=== PATIENT | female | born 2000 | race Caucasian/White ===

== ENCOUNTER 2018-04-09 09:17 | Emergency (ER) | payer OTHER ==
[2018-04-09 09:22] VITALS: BMI 20.5
[2018-04-09] MEDS ORDERED: SODIUM CHLORIDE 1,000 ML IV ONE ×2 (09:41→11:00)
[2018-04-09] MEDS ORDERED: ONDANSETRON 4 MG/2 ML VIAL IVPB ONE (09:41)
[2018-04-09] MEDS ORDERED: morphine CARPU-JECT 2 MG/1 ML DISP.SYRIN IVPUSH ONE ×2 (09:41→11:54)
[2018-04-09] MEDS ORDERED: MORPHINE SULFATE 2 MG/ML VIAL ONE ×2 (09:42→12:02)
[2018-04-09] MEDS ORDERED: ONDANSETRON 4 MG/2 ML VIAL ONE (09:42)
[2018-04-09 10:02] LABS: BASO % 0.5 % (0-2.0); EOS % 0.5 % (0-4.5); HEMATOCRIT 36.4 % (32.4-45.2); HEMOGLOBIN 12.4 GM/dL (10.7-15.3); LYMPH % 32.4 % (8-40); MCHC 34.2 g/dl (32.0-36.0); MEAN CELL VOLUME 93.7 fl (80-96); MEAN PLT VOLUME 8.5 fl (7.5-11.1); MONO % 5.5 % (3.8-10.2); NEUT % 61.1 % (42.8-82.8); PLATELET COUNT 239 K/MM3 (134-434); RBC 3.88 M/mm3 (3.60-5.2); RDW 12.9 % (11.6-15.6); WHITE BLOOD COUNT 7.2 K/mm3 (4.0-10.0)
[2018-04-09] MEDS ORDERED: KETOROLAC TROMETHAMINE 30 MG/1 ML VIAL IVPUSH ONE (10:06)
--- NOTE | 2018-04-09 10:06 | PDOC ---
History of Present Illness <Siddhartha Gallo - Last Filed: 04/09/18 11:42> - General History Source: Patient Exam Limitations: No Limitations - History of Present Illness Initial Comments: 04/09/18 11:46 The patient is a 17 year old female with a significant PMH of kidney stones three years ago who presents to the ER with left flank pain since this morning. The patient describes the left flank pain as sharp, 10/10 in severity, with radiation to the left lower quadrant. Patient states the left back pain is exacerbated with movement. Patient is complaining of associated nausea and chills. Patient denies taking pain medication today. Patient reports the pain is similar to her right kidney stone three years ago confirmed by CT scan, which passed on its own after medication. Patient returned from [place] on March 28 and was experiencing diarrhea at that time, which resolved after taking imodium. Last menstrual period ended three days ago. The patient denies chest pain, shortness of breath, headache and dizziness. Denies vomiting, current diarrhea and constipation. Denies dysuria, frequency, urgency and hematuria. Allergies: NKA Past surgical history: None reported. Social history: No reported alcohol, drug, or cigarette use. PCP: Hannah Curry <Althea Smart - Last Filed: 04/09/18 11:47> - General Chief Complaint: Pain, Acute Stated Complaint: KIDNEY PAIN Time Seen by Provider: 04/09/18 09:28 Past History - Past Medical History COPD: No Kidney Stones: Yes - Immunization History Immunization Up to Date: Yes - Suicide/Smoking/Psychosocial Hx Smoking History: Never smoked Hx Alcohol Use: No <Siddhartha Gallo - Last Filed: 04/09/18 11:42> <Althea Smart - Last Filed: 04/09/18 11:47> - Past Medical History Allergies/Adverse Reactions: Allergies Allergy/AdvReac Type Severity Reaction Status Date / Time lidocaine Allergy Intermediate Rash Verified 06/29/14 01:04 Home Medications: Ambulatory Orders NK [No Known Home Medication] 04/09/18 Review of Systems - Review of Systems Able to Perform ROS?: Yes Comments:: 04/09/18 11:46 CONSTITUTIONAL: No reported: Fever, Chills, Diaphoresis, Generalized Weakness, Malaise, Loss of Appetite HEENT: No reported: Rhinorrhea, Nasal Congestion, Throat Pain, Throat Swelling, Difficulty Swallowing, Mouth Swelling, Ear Pain, Eye Pain, Visual Changes CARDIOVASCULAR: No reported: Chest Pain, Syncope, Palpitations, Irregular Heart Rate, Lightheadedness, Peripheral Edema RESPIRATORY: No reported: Cough, Shortness of Breath, SOB with Exertion, Orthopnea, Wheezing , Stridor, Hemoptysis GASTROINTESTINAL: No reported: Abdominal Distension, Vomiting, Diarrhea, Constipation, Melena, Hematochezia Reported: Left lower quadrant pain. Reported: Nausea GENITOURINARY: No reported: Dysuria, Frequency, Urgency, Hesitancy, Genital Pain Reported: Left flank pain. MUSCULOSKELETAL: No reported: Myalgia, Arthralgia, Joint Swelling, Neck Pain SKIN: No reported: Rash, Itching, Pallor HEMEATOLOGIC/IMMUNOLOGIC: No reported: Easy Bleeding, Easy Bruising, Lymphadenopathy, Frequent infections ENDOCRINE: No reported: Unexplained Weight Gain, Unexplained Weight Loss, Heat Intolerance , Cold Intolerance NEUROLOGIC: No reported: Headache, Focal Weakness, Paresthesias, Vertigo, Lightheadedness, Unsteady Gait, Seizure, Mental Status Changes, Incontinence PSYCHIATRIC: No reported: Anxiety, Depression <Althea Smart - Last Filed: 04/09/18 11:47> *Physical Exam - Vital Signs Last Vital Signs Temp Pulse Resp BP Pulse Ox 98 F 71 18 139/71 99 04/09/18 09:20 04/09/18 09:20 04/09/18 09:20 04/09/18 09:20 04/09/18 09:20 <Siddhartha Gallo - Last Filed: 04/09/18 11:42> - Vital Signs Last Vital Signs Temp Pulse Resp BP Pulse Ox 98 F 71 18 139/71 99 04/09/18 09:20 04/09/18 09:20 04/09/18 09:20 04/09/18 09:20 04/09/18 09:20 - Physical Exam Comments: 04/09/18 11:47 GENERAL: (+) Moaning in pain. The patient is awake, alert, and fully oriented. HEAD: Normocephalic, atraumatic. EYES: extraocular movements intact, sclera anicteric, conjunctiva clear. ENT: Normal voice, Moist mucous membranes. NECK: Normal range of motion, supple LUNGS: Breath sounds equal, clear to auscultation bilaterally. No wheezes, no rhonchi, no rales. HEART: Regular rate and rhythm, without murmur, rub or gallop. ABDOMEN: (+) Mild left lower quadrant tenderness. Soft. No guarding, no rebound.No CVA tenderness EXTREMITIES: Normal range of motion, no edema. No cyanosis. No erythema, or tenderness. NEUROLOGICAL: No facial assymetry, Normal speech, PSYCH: Normal mood, normal affect. SKIN: Warm, Dry, normal turgor, <Althea Smart - Last Filed: 04/09/18 11:47> ED Treatment Course - LABORATORY CBC & Chemistry Diagram: 04/09/18 09:40 04/09/18 09:40 - ADDITIONAL ORDERS Additional order review: 04/09/18 09:40 RBC 3.88 MCV 93.7 MCHC 34.2 RDW 12.9 MPV 8.5 Neutrophils % 61.1 Lymphocytes % 32.4 Monocytes % 5.5 Eosinophils % 0.5 Basophils % 0.5 - Medications Given in the ED: ED Medications Discontinued Medications Generic Name Dose Route Start Last Admin Trade Name Nate PRN Reason Stop Dose Admin Morphine Sulfate 2 mg 04/09/18 09:41 04/09/18 09:45 Morphine Injection - IVPUSH 04/09/18 09:42 2 mg ONCE ONE Administration Ondansetron HCl 4 mg 04/09/18 09:41 04/09/18 09:45 Zofran Injection IVPB 04/09/18 09:42 4 mg ONCE ONE Administration <Siddhartha Gallo - Last Filed: 04/09/18 11:42> - LABORATORY CBC & Chemistry Diagram: 04/09/18 09:40 04/09/18 09:40 - ADDITIONAL ORDERS Additional order review: Laboratory Results 04/09/18 04/09/18 09:40 09:40 Sodium 142 Potassium 3.4 L Chloride 108 H Carbon Dioxide 23 Anion Gap 11 BUN 15 Creatinine 0.8 Creat Clearance w eGFR > 60 Random Glucose 124 H Calcium 9.2 Total Bilirubin 0.4 AST 18 ALT 20 Alkaline Phosphatase 66 Total Protein 7.5 Albumin 4.3 Urine Color Yellow Urine Appearance Slcloudy Urine pH 5.0 Ur Specific [place] 1.021 Urine Protein 1+ H Urine Glucose (UA) Negative Urine Ketones Negative Urine Blood 3+ H Urine Nitrite Negative Urine Bilirubin Negative Urine Urobilinogen Negative Ur Leukocyte Esterase Negative Urine WBC (Auto) 8 Urine RBC (Auto) 25 Ur Epithelial Cells Rare Urine Bacteria Few Urine Mucus Few Urine HCG, Qual Negative 04/09/18 09:40 RBC 3.88 MCV 93.7 MCHC 34.2 RDW 12.9 MPV 8.5 Neutrophils % 61.1 Lymphocytes % 32.4 Monocytes % 5.5 Eosinophils % 0.5 Basophils % 0.5 - Medications Given in the ED: ED Medications Discontinued Medications Generic Name Dose Route Start Last Admin Trade Name Nate PRN Reason Stop Dose Admin Sodium Chloride 1,000 mls @ 1,000 mls/hr 04/09/18 09:41 04/09/18 09:45 Normal Saline - IV 04/09/18 10:40 1,000 mls/hr .Q1H ONE Administration Ketorolac Tromethamine 30 mg 04/09/18 10:06 04/09/18 10:22 Toradol Injection - IVPUSH 04/09/18 10:07 30 mg ONCE ONE Administration Morphine Sulfate 2 mg 04/09/18 09:41 04/09/18 09:45 Morphine Injection - IVPUSH 04/09/18 09:42 2 mg ONCE ONE Administration Ondansetron HCl 4 mg 04/09/18 09:41 04/09/18 09:45 Zofran Injection IVPB 04/09/18 09:42 4 mg ONCE ONE Administration <Althea Smart - Last Filed: 04/09/18 11:47> Medical Decision Making - Medical Decision Making 04/09/18 10:05 17y F hx of kidney stnoes presents iwth L flank pain that is sharp, constant, started suddenly around 8:30 this morning. Pain similar to prior kidney stones a few years ago but much worse. assoc with fever w/o no fever or systemic complaints. on exam pt appears uncomfortable suspect kidney stones, will r/o , uuti will obtain labs, ua, hcg zofran, toradol/fluids for symptomatic relief A portion of this note was documented by scribe services under my direction. I have reviewed the details of the note, within reason, and agree with the documentation with the following case summary and management plan written by me 04/09/18 11:42 Pt feeling improved Mild dilatation of left renal pelvis suggestive of minimal hydro, +hematuria -- suspect kidney stone will give pt flomax, analgesia and urolology follow up I discussed the physical exam findings, ancillary test results and final diagnoses with the patient. I answered all of the patient's questions. The patient was satisfied with the care received and felt comfortable with the discharge plan and treatment plan. The patient will call their primary care physician within 24 hours to arrange follow-up and will return to the Emergency Department with any new, persistent or worsening symptoms. <Siddhartha Gallo - Last Filed: 04/09/18 11:42> - Medical Decision Making 04/09/18 11:35 Imaging: Kidney US Impression: Likely tiny nonobstructing left renal stones. Mild dilation of the left renal pelvis that may represent minimal hydronephrosis versus an extrarenal pelvis. Normal appearing right kidney Reported by: Dr. Ramos <Althea Smart - Last Filed: 04/09/18 11:47> *DC/Admit/Observation/Transfer - Discharge Dispostion Decision to Admit order: No <Siddhartha Gallo - Last Filed: 04/09/18 11:42> - Attestations Scribe Attestion: 04/09/18 11:37 Documentation prepared by Althea Smart, acting as medical translator for Siddhartha Gallo MD. <Althea Smart - Last Filed: 04/09/18 11:47> Diagnosis at time of Disposition: Kidney stone on left side - Discharge Dispostion Disposition: HOME - Referrals Referrals: Urmila Rock [Primary Care Provider] - Emeka Oreilly MD [Staff Physician] - - Patient Instructions Printed Discharge Instructions: DI for Kidney Stones Additional Instructions: Return to the emergency department immediately with ANY new, persistent or worsening symptoms including worsening pain, inability to tolerate oral intake, fever/chills, or any other concerns. Take the ibuprofen every 6 hours for the next 2 days. Take percocet if you have pain that is not treated with the motrin/ibuprofen. Beware that it may make you sleepy, so do not drive or do anything that would put you or others in danger. Take flomax daily. Stay well hydrated. You MUST call and follow up with your doctor and urology within 3 days for further evaluation of your symptoms. Your emergency department visit is not complete without a followup with your doctor for reevaluation. Results were discussed with you. Please make sure your doctor reviews the results of your emergency evaluation. Print Language: INDIAN
[2018-04-09 10:11] LABS: URINE APPEARANCE SLCLOUDY; URINE BILIRUBIN NEGATIVE (<2.0 mg/dL); URINE COLOR YELLOW; URINE GLUCOSE (UA) NEGATIVE (NEGATIVE); URINE KETONE NEGATIVE (NEGATIVE); URINE LEUK ESTERASE NEGATIVE (NEGATIVE); URINE NITRITE NEGATIVE (NEGATIVE); URINE UROBILINOGEN NEGATIVE mg/dL (0.2-1.0)
[2018-04-09] MEDS ORDERED: KETOROLAC TROMETHAMINE 30 MG/1 ML VIAL ONE (10:11)
[2018-04-09 10:15] LABS: HCG,QUALITATIVE URINE NEGATIVE
[2018-04-09 10:19] LABS: URINE PROTEIN 1+ (NEGATIVE)
[2018-04-09 10:29] LABS: EPI CELLS RARE /HPF (FEW); URINE BACTERIA FEW /hpf (NONE SEEN); URINE MUCUS FEW
[2018-04-09 10:43] LABS: ALBUMIN 4.3 g/dl (3.4-5.0); ANION GAP 11 (8-16); BLOOD UREA NITROGEN 15 mg/dL (7-18); CALCIUM 9.2 mg/dL (8.5-10.1); CHLORIDE 108 mmol/L (98-107); CO2 23 mmol/L (21-32); GLUCOSE,RANDOM 124 mg/dL (74-106); POTASSIUM 3.4 mmol/L (3.5-5.1); SGPT/ALT 20 U/L (12-78); SODIUM 142 mmol/L (136-145)
[2018-04-09 10:46] LABS: ALK PHOS 66 U/L (45-117); BILIRUBIN,TOTAL 0.4 mg/dL (0.2-1.0); CREATININE 0.8 mg/dL (0.55-1.02); SGOT/AST 18 U/L (15-37); TOT PROT 7.5 g/dl (6.4-8.2)
[2018-04-09] MEDS ORDERED: METOCLOPRAMIDE HCL INJECTION 10 MG/2 ML VIAL IVPUSH ONE (11:54)
[2018-04-09] MEDS ORDERED: METOCLOPRAMIDE HCL INJECTION 10 MG/2 ML VIAL ONE (12:02)
[2018-04-09 13:04] VITALS: BP 112/64; PULSE 66; TEMP 97.7
== END 2018-04-09 13:19 | disposition home or self-care (01) ==
LOC: JER 09:17
PROC: 3E033NZ Introduction of Analgesics, Hypnotics, Sedatives into Peripheral Vein, Percutaneous Approach (ICD-10-PCS; principal; 2018-04-09)
PROC: 3E033GC Introduction of Other Therapeutic Substance into Peripheral Vein, Percutaneous Approach (ICD-10-PCS; 2018-04-09)
PROC: 3E0333Z Introduction of Anti-inflammatory into Peripheral Vein, Percutaneous Approach (ICD-10-PCS; 2018-04-09)
PROC: 3E0337Z Introduction of Electrolytic and Water Balance Substance into Peripheral Vein, Percutaneous Approach (ICD-10-PCS; 2018-04-09)
DX: N20.0 Calculus of kidney (principal)
CPT/HCPCS: 36415; 76775-TC; 80053; 81003; 81015; 84703; 85025; 99284-25; J7030

== ENCOUNTER 2018-05-16 12:53 | Day surgery (SDC) | payer OTHER ==
[2018-05-16 13:43] VITALS: TEMP 98.2
[2018-05-16] MEDS ORDERED: fentaNYL CITRATE 250 MCG/5 ML VIAL ONE (15:10)
[2018-05-16] MEDS ORDERED: MIDAZOLAM HCL 2 MG/2 ML SINGLE DOSE VIAL ONE (15:10)
--- NOTE | 2018-05-16 16:13 | OP ---
Operative Note - Note: Operative Date: 05/16/18 Pre-Operative Diagnosis: R renal stone Operation: Right ESWL Findings: 3 mm upper pole and 3 mm lower pole stones Right kidney Surgeon: Emeka Oreilly Anesthesia: Fractional Estimated Blood Loss (mls): 0
[2018-05-16 17:50] VITALS: BP 102/56; PULSE 66
--- NOTE | 2018-05-16 22:03 | OP ---
DATE OF OPERATION: 05/16/2018 PREOPERATIVE DIAGNOSIS: Right renal stone. POSTOPERATIVE DIAGNOSIS: Right renal stone. PROCEDURE: Right extracorporeal shock wave lithotripsy. ATTENDING: Lori Villegas MD ANESTHESIA: General. DESCRIPTION OF OPERATION: The patient was brought in the operating room and placed in supine position on the operating room table. Ultrasonography and fluoroscopy were performed. Two stones were identified, a 3-mm upper pole and a 3-mm lower pole stone. Anesthesia was then administered as was preoperative antibiotics. Shock wave lithotripsy was then performed; 1250 impulses at 17 joules of power were administered to each stone separately. Excellent fragmentation was noted. The patient tolerated the procedure very well. There were no complications noted. The disposition of the patient was to the recovery room. LORI VILLEGAS M.D. [id number]
== END 2018-05-16 17:30 | disposition home or self-care (01) ==
LOC: JASU-SURG 12:53
PROVIDERS: ATTEND Urology
PROC: 0TF3XZZ Fragmentation in Right Kidney Pelvis, External Approach (ICD-10-PCS; principal; 2018-05-16 14:00)
DX: N20.0 Calculus of kidney (principal)
CPT/HCPCS: 84703

== ENCOUNTER 2018-05-30 10:04 | Day surgery (SDC) | payer OTHER ==
[2018-05-30] MEDS ORDERED: MIDAZOLAM HCL 2 MG/2 ML SINGLE DOSE VIAL ONE ×2 (10:56→11:56)
[2018-05-30] MEDS ORDERED: PROPOFOL 20 ML ONE (10:56)
--- NOTE | 2018-05-30 12:16 | OP ---
Operative Note - Note: Operative Date: 05/30/18 Pre-Operative Diagnosis: Left renal stone Operation: Left ESWL Findings: Upper, Mid and lower pole x 3 5 mm renal stones Post-Operative Diagnosis: Same as Pre-op Surgeon: Emeka Oreilly Anesthesia: Fractional Estimated Blood Loss (mls): 0 Operative Report Dictated: Yes
[2018-05-30 14:10] VITALS: BP 111/53; PULSE 62; TEMP 97.5
[2018-05-30] MEDS ORDERED: oxyCODONE HCL 5 MG TABLET PO PRN (15:53)
[2018-05-30] MEDS ORDERED: ACETAMINOPHEN 325 MG TABLET (FP) PO PRN (15:53)
[2018-05-30] MEDS ORDERED: ONDANSETRON 4 MG/2 ML VIAL IVPUSH PRN (15:53)
[2018-05-30] MEDS ORDERED: LACTATED RINGERS SOLUTION 1,000 ML IV SCH (16:00)
--- NOTE | 2018-05-30 20:33 | OP ---
DATE OF OPERATION: 05/30/2018 PREOPERATIVE DIAGNOSIS: Left renal stone. POSTOPERATIVE DIAGNOSIS: Left renal stone. PROCEDURE: Left extracorporeal shockwave lithotripsy. ATTENDING SURGEON: Lori Villegas MD ANESTHESIA: Fractional. DESCRIPTION OF PROCEDURE: The patient was brought to the operating room and placed in the supine position on the operating room table. Ultrasonography and fluoroscopy were performed. Three stones, each measuring 5 mm, were noted in the upper, middle, and lower poles. Shockwave lithotripsy was performed once anesthesia and preoperative antibiotics were administered. Then, 1000 impulses at 17-18 Joules of power were administered to each stone. A total of 3000 impulses were given. No complications were noted. Excellent fragmentation was noted under real-time ultrasonography and fluoroscopy. DISPOSITION: The patient was to the recovery room. LORI VILLEGAS M.D. [id number]
== END 2018-05-30 14:35 | disposition home or self-care (01) ==
LOC: JASU-SURG 10:04
PROVIDERS: ATTEND Urology
PROC: 0TF4XZZ Fragmentation in Left Kidney Pelvis, External Approach (ICD-10-PCS; principal; 2018-05-30 11:00)
DX: N20.0 Calculus of kidney (principal)
CPT/HCPCS: 84703

== ENCOUNTER 2019-02-20 11:15 | Day surgery (SDC) | payer OTHER | END 2019-02-20 15:00 | disposition home or self-care (01) | LOC: JASU-SURG 11:15 ==

== ENCOUNTER 2020-05-03 15:05 | Inpatient (IN) | payer OTHER ==
[2020-05-03] MEDS ORDERED: KETOROLAC TROMETHAMINE 30 MG/1 ML VIAL IVPUSH ONE (15:37)
[2020-05-03] MEDS ORDERED: ONDANSETRON 4 MG/2 ML VIAL IVPUSH ONE (15:37)
[2020-05-03] MEDS ORDERED: morphine CARPU-JECT 2 MG/1 ML DISP.SYRIN IVPUSH ONE (15:37)
--- NOTE | 2020-05-03 16:02 | PDOC ---
History of Present Illness - General History Source: Patient Exam Limitations: No Limitations - History of Present Illness Initial Comments: 05/03/20 15:56 19-year-old female past medical history of nephrolithiasis presenting to the ED complaining of bilateral flank pain for 5 days. Patient states she was seen and evaluated at [facility] and received a CAT scan with negative results and was discharged. Patient states since her evaluation 4 days ago she had worsening flank pain dysuria and fever and chills. Patient has also experienced multiple episodes of nonbloody nonbilious vomiting without diarrhea. Patient is currently on her menstrual period. Of note patient has recent travel to [place]. Pt otherwise denies: fevers, chills, syncope, lightheadedness, dizziness, headaches, neck pain, chest pain, shortness of breath, palpitations, abdominal pain, diarrhea, constipation. <Javy Barba - Last Filed: 05/03/20 19:13> <Toshia Yuan - Last Filed: 05/07/20 10:40> - General Chief Complaint: Pain, Acute Stated Complaint: BACK PAIN/VOMITING Time Seen by Provider: 05/03/20 15:28 Past History - Medical History Anemia: No Asthma: No Cancer: No Cardiac Disorders: No CVA: No COPD: No CHF: No Dementia: No Diabetes: No GI Disorders: No Disorders: Yes (STONES) HTN: No Hypercholesterolemia: No Kidney Stones: Yes Liver Disease: No Seizures: No Thyroid Disease: No - Reproductive History Is Patient Now?: No - Immunization History Immunization Up to Date: Yes - Psycho-Social/Smoking History Smoking History: Never smoked <Javy Barba - Last Filed: 05/03/20 19:13> <Toshia Yuan - Last Filed: 05/07/20 10:40> - Medical History Allergies/Adverse Reactions: Allergies Allergy/AdvReac Type Severity Reaction Status Date / Time No Known Drug Allergies Allergy Verified 05/03/20 15:16 Home Medications: Ambulatory Orders Doxycycline Hyclate 100 mg PO BID 10 Days #20 capsule 05/06/20 Nitrofurantoin Macrocrystal [Nitrofurantoin] 100 mg PO BID 7 Days #14 capsule 05/06/20 *Physical Exam - Vital Signs Last Vital Signs Temp Pulse Resp BP Pulse Ox 100.8 F H 114 H 18 94/55 L 05/03/20 15:09 05/03/20 15:09 05/03/20 15:09 05/03/20 15:09 - Physical Exam 05/03/20 15:58 Gen: AAOx 3, no acute distress, comfortable, no signs of respiratory distress HENT: atraumatic, normocephalic with no laceration or contusion. Nasal mucosa without erythema. Oropharynx without erythema or exudates. Mucous membranes moist. EYES: PERRL, EOM intact, conjunctiva pink NECK: supple; trachea midline; no JVD, no lymphadenopathy, or thyromegaly CV: RRR no murmurs, gallops, or rubs. CHEST: CTA b/l no wheezing, rales or rhonchi ABD: +BS/ND. no TTP; soft, no rebound, no guarding +CVAT R>L EXTREMITY: no cyanosis or erythema. 2+ dorsalis pedis, posterior tibial, and radial pulse. No pedal edema; no calf swelling or tenderness SKIN: no rash, warm and dry, no diaphoresis HEME: no purpura or ecchymosis NEURO: normal speech, CN II-XII intact, sensation intact, normal gait, no cerebellar deficits MS: 5/5 strength in all extremities, FROM intact in all extremities. <Javy Barba - Last Filed: 05/03/20 19:13> - Vital Signs Last Vital Signs Temp Pulse Resp BP Pulse Ox 97.7 F 51 L 16 114/64 99 05/06/20 15:03 05/06/20 15:03 05/06/20 15:03 05/06/20 15:03 05/06/20 15:03 <Toshia Yuan - Last Filed: 05/07/20 10:40> ED Treatment Course - LABORATORY CBC & Chemistry Diagram: 05/03/20 15:50 05/03/20 15:50 - RADIOLOGY Radiology Studies Ordered: Category Date Time Status KIDNEY / RENAL US [US] Stat Ultrasound 05/03/20 15:55 Ordered <Javy Barba - Last Filed: 05/03/20 19:13> - LABORATORY CBC & Chemistry Diagram: 05/06/20 07:18 05/06/20 07:18 - ADDITIONAL ORDERS Additional order review: 05/03/20 15:50 Urine Culture - Final Urine - Urine Clean Catch Escherichia Coli 05/03/20 15:50 RBC 4.41 MCV 93.1 MCHC 34.7 RDW 12.8 MPV 9.6 D Neutrophils % 44.8 D Lymphocytes % 39.9 D Monocytes % 14.5 H D Eosinophils % 0.1 Basophils % 0.7 - Medications Given in the ED: ED Medications Discontinued Medications Generic Name Dose Route Start Last Admin Trade Name Freq PRN Reason Stop Dose Admin Diphenhydramine HCl 25 mg 05/04/20 06:00 05/04/20 05:51 Benadryl Injection - IVPB 05/04/20 06:01 25 mg ONCE ONE Administration Diphenhydramine HCl 25 mg 05/05/20 01:38 05/05/20 01:55 Benadryl Injection - IVPB 05/05/20 01:39 25 mg ONCE ONE Administration Diphenhydramine HCl 25 mg 05/05/20 08:32 05/05/20 10:10 Benadryl Oral Solution - PO 25 mg Q8H PRN Administration FOR ITCHING Hydrocortisone 1 applic 05/06/20 07:14 05/06/20 10:14 Hytone 0.5% Cream - TP 1 applic BID PRN Administration FOR ITCHING Potassium Chloride 10 meq in 100 mls @ 100 mls/hr 05/03/20 18:45 05/03/20 18:50 Potassium Chloride 10 Meq Premix Ivpb - IVPB 05/03/20 19:44 100 mls/hr Q60M AFUA Administration Sodium Chloride 1,000 mls @ 100 mls/hr 05/03/20 21:45 05/03/20 22:04 Normal Saline - IV 05/05/20 07:44 100 mls/hr ASDIR AFUA Administration Doxycycline Hyclate 100 mg/ 100 mls @ 100 mls/hr 05/03/20 22:00 05/04/20 21:38 Dextrose IVPB 100 mls/hr BID AFUA Administration Piperacillin Sod/Tazobactam 100 mls @ 200 mls/hr 05/03/20 22:00 05/04/20 15:01 Sod 4.5 gm/ Dextrose IVPB 05/04/20 15:29 200 mls/hr Q6H-IV AFUA Administration Protocol Vancomycin HCl 1,250 mg/ 250 mls @ 166.667 mls/hr 05/04/20 02:15 05/04/20 17:30 Dextrose IVPB 05/04/20 19:29 166.667 mls/hr Q8H-IV AFUA Administration Potassium Chloride 40 meq/ 1,020 mls @ 125 mls/hr 05/04/20 10:45 05/05/20 02:29 Sodium Chloride IVPB 05/05/20 02:44 125 mls/hr Q8H AFUA Administration Piperacillin Sod/Tazobactam 50 mls @ 100 mls/hr 05/05/20 02:00 05/06/20 09:12 Sod 3.375 gm/ Dextrose IVPB 100 mls/hr Q8H-IV AFUA Administration Protocol Doxycycline Hyclate 100 mg/ 100 mls @ 100 mls/hr 05/05/20 10:00 05/06/20 10:11 Dextrose IVPB 100 mls/hr BID AFUA Administration Sodium Chloride 1,000 mls @ 75 mls/hr 05/05/20 14:00 05/06/20 09:12 1/2 Normal Saline IV 75 mls/hr ASDIR AFUA Administration Ketorolac Tromethamine 30 mg 05/03/20 15:37 05/03/20 16:39 Toradol Injection - IVPUSH 05/03/20 15:38 30 mg ONCE ONE Administration Magnesium Sulfate/Dextrose 1 gm 05/06/20 11:00 05/06/20 11:41 Magnesium 1gm/D5w - IVPB 05/06/20 11:01 1 gm ONCE ONE Administration Morphine Sulfate 2 mg 05/03/20 15:37 05/03/20 16:39 Morphine Injection - IVPUSH 05/03/20 15:38 Not Given ONCE ONE Ondansetron HCl 4 mg 05/03/20 15:37 05/03/20 16:39 Zofran Injection IVPUSH 05/03/20 15:38 4 mg ONCE ONE Administration Potassium Chloride 20 meq 05/03/20 18:33 05/03/20 18:51 Potassium Chloride 20 Meq Premix Ivpb - IVPB 05/03/20 18:34 Not Given ONCE ONE Sodium Chloride 1,000 ml 05/03/20 18:33 05/03/20 18:50 Normal Saline - IV 05/03/20 18:34 1,000 ml ONCE ONE Administration <Toshia Yuan - Last Filed: 05/07/20 10:40> Medical Decision Making - Medical Decision Making 19-year-old female bilateral flank pain Vital signs significant for fever 100.8 and tachycardia to 114 Will obtain labs UA and renal ultrasound (patient had CAT scan 4 days ago will avoid excessive radiation if possible) We will give Toradol and Zofran for symptomatic relief Will reassess based on results White blood cell count 1.8 neutropenia of 0.8 H/H 14.2/41 Platelet count 63 UA negative for UTI Attending Physician recommends CT abdomen and pelvis as well as admission Coagulation factors within normal limits Sodium 133 Potassium 3.3 AST 445 ALT 203 Beta-hCG negative Rest of labs noncontributory Lipase for add-on Replete potassium and give 1 L NS Ultrasound shows no hydronephrosis A 1.3 x 0.7 cm echogenic focus is seen in the region of the left renal pelvis possibly representing a nonobstructing calculus CT shows no acute pathology please refer to report for incidental findings Due to patient blood work which outlines a neutropenic fever with elevated LFTs and thrombocytopenia possibly caused by hepatitis versus other acute pathology with recent travel to [place] patient to be admitted for medical work-up Micro blog sent to admitting physician at 1830 awaiting response 05/03/20 19:13 Pt admitted under the care of Dr Tijerina for further management <Javy Barba - Last Filed: 05/03/20 19:13> - Medical Decision Making I reviewed the case with the mid-level practitioner and agree with the mid-level practitioner's assessment, diagnosis and disposition. <Toshia Yuan - Last Filed: 05/07/20 10:40> Discharge - Discharge Information Problems reviewed: Yes - Admission Yes <Javy Barba - Last Filed: 05/03/20 19:13> <Toshia Yuan - Last Filed: 05/07/20 10:40> - Discharge Information Clinical Impression/Diagnosis: Neutropenia Qualifiers: Neutropenia type: due to infection Qualified Code(s): D70.3 - Neutropenia due to infection Condition: Stable Disposition: HOME
[2020-05-03 16:17] LABS: BASO % 0.7 % (0-2.0); EOS % 0.1 % (0-4.5); HEMOGLOBIN 14.2 GM/dL (10.7-15.3); LYMPH % 39.9 % (8-40); MCH 32.3 pg (25.7-33.7); MCHC 34.7 g/dl (32.0-36.0); MEAN CELL VOLUME 93.1 fl (80-96); MEAN PLT VOLUME 9.6 fl (7.5-11.1); MONO % 14.5 % (3.8-10.2); NEUT % 44.8 % (42.8-82.8); RBC 4.41 M/mm3 (3.60-5.2); RDW 12.8 % (11.6-15.6)
[2020-05-03 16:21] LABS: EPI CELLS 36 /uL (0-25.1); HYALINE CASTS 3 /uL (0-3.1); PH,URINE 7.5 (5.0-8.0); URINE APPEARANCE CLEAR; URINE BACTERIA 67 /uL (0-1359); URINE BILIRUBIN NEGATIVE (NEGATIVE); URINE COLOR DK YELLOW; URINE GLUCOSE (UA) NEGATIVE (NEGATIVE); URINE KETONE 1+ (NEGATIVE); URINE LEUK ESTERASE TRACE (NEGATIVE); URINE NITRITE NEGATIVE (NEGATIVE); URINE PROTEIN 1+ (NEGATIVE); URINE RBC 20 /uL (0-23.9); URINE WBC 23 /uL (0-25.8)
[2020-05-03 16:22] LABS: PLATELET COUNT 63 K/MM3 (134-434); WHITE BLOOD COUNT 1.8 K/mm3 (4.0-10.0)
[2020-05-03 16:27] LABS: INR 1.06 (0.83-1.09); PROTHROMBIN TIME (PATIENT) 12.5 SEC (9.7-13.0)
[2020-05-03] MEDS ORDERED: KETOROLAC TROMETHAMINE 30 MG/1 ML VIAL ONE (16:34)
[2020-05-03 16:44] LABS: OVALOCYTE 1+
[2020-05-03 16:45] LABS: PLATELET ESTIMATE DECREASED
[2020-05-03 16:48] LABS: ALBUMIN 3.9 g/dl (3.4-5.0); ALK PHOS 52 U/L (45-117); ANION GAP 9 MMOL/L (8-16); BILIRUBIN,TOTAL 0.4 mg/dL (0.2-1); CALCIUM 8.2 mg/dL (8.5-10.1); CHLORIDE 100 mmol/L (98-107); CO2 24 mmol/L (21-32); CREATININE 0.8 mg/dL (0.55-1.3); GLUCOSE,RANDOM 107 mg/dL (74-106); POTASSIUM 3.3 mmol/L (3.5-5.1); SGOT/AST 445 U/L (15-37); SGPT/ALT 203 U/L (13-61); SODIUM 133 mmol/L (136-145); TOT PROT 7.6 g/dl (6.4-8.2)
[2020-05-03] MEDS ORDERED: POTASSIUM CHLORIDE 20 MEQ PREMIX IVPB 100 ML IVPB ONE (18:33)
[2020-05-03] MEDS ORDERED: SODIUM CHLORIDE 0.9% 500 ML INFUS.BAG IV ONE (18:33)
[2020-05-03] MEDS ORDERED: KCL 10 MEQ IVPB 10 MEQ/100 ML INFUS.BAG IVPB SCH (18:45)
[2020-05-03] MEDS ORDERED: KCL 10 MEQ IVPB 10 MEQ/100 ML INFUS.BAG IVPB ONE (18:45)
[2020-05-03 18:51] LABS: LIPASE 199 U/L (73-393)
--- NOTE | 2020-05-03 19:56 | PN ---
Teaching Attending Note Name of Resident: Mayte Rodriguez ATTENDING PHYSICIAN STATEMENT I saw and evaluated the patient. I reviewed the resident's note and discussed the case with the resident. I agree with the resident's findings and plan as documented. SUBJECTIVE: Patient is a 19 year old old woman with a PMH of Kidney stones and Left kidney lithotripsy presenting to the ER complaining of bilateral flank pain for 5 days. Patient states she was evaluated at [facility] four days ago and the CAT scan was negative. Since then she has had worsening flank pain dysuria and fever and chills. Patient has also experienced multiple episodes of nonbloody nonbilious vomiting without diarrhea. Patient is currently on her menstrual period. Patient recently travelled to [place] and had diarrhea and abdominal pain for 5 days while in [place]. Also had mosquito bites on her legs. Patient denies chest pain, shortness of breath, headache, palpitations, dizziness, diarrhea, constipation, melena, hematochezia or hematuria. Denies alcohol, tobacco or illicit drug use. No sick contacts. Family history is unremarkable. OBJECTIVE: Alert Vital Signs Period Temp Pulse Resp BP Sys/Priest Pulse Ox Last 24 Hr 99.1 F-100.8 F 71-114 18-20 90-94/49-55 98-100 HEENT: No Jaundice, eye redness or discharge, PERRLA, EOMI. Normocephalic, atraumatic. External ears are normal and hearing is grossly intact. No nasal discharge. Neck: Supple, nontender. No palpable adenopathy or thyromegaly. No JVD Chest: Good effort. Clear to auscultation and percussion. Heart: Regular. No S3, rub or murmur Abdomen: Not distended, soft, flank tenderness and no HSM. No rebound or guarding. Normal bowel sounds. Ext: Peripheral pulses intact. No leg edema. Sequelae of insect bites. Skin: Warm and dry. No petechiae, rash or ecchymosis. Neuro: Alert. Oriented x3. CN 2-12 grossly intact. Sensation grossly intact in all four extremities and DTR are symmetric. Psych: Appropriate mood and affect. Good insight. Home Medications Medication Instructions Recorded NK [No Known Home Medication] 02/17/19 Abnormal Lab Results 05/03/20 05/03/20 05/03/20 15:50 15:50 15:50 WBC 1.8 L* Plt Count 63 L D Absolute Neuts (auto) 0.8 L Neutrophils % (Manual) 34.0 L Lymphocytes % (Manual) 42.0 H Monocytes % 14.5 H D Sodium 133 L Potassium 3.3 L BUN 6.0 L Random Glucose 107 H Calcium 8.2 L AST 445 H ALT 203 H Urine Protein 1+ H Urine Ketones 1+ H Current Medications Generic Name Dose Route Start Last Admin Trade Name Freq PRN Reason Stop Dose Admin Sodium Chloride 1,000 mls @ 100 mls/hr 05/03/20 21:45 05/03/20 22:04 Normal Saline - IV 100 mls/hr ASDIR AFUA Administration Piperacillin Sod/Tazobactam 100 mls @ 200 mls/hr 05/03/20 22:00 Sod 4.5 gm/ Dextrose IVPB Q6H-IV AFUA Protocol Doxycycline Hyclate 100 mg/ 100 mls @ 100 mls/hr 05/03/20 22:00 05/04/20 00:30 Dextrose IVPB 100 mls/hr BID AFUA Administration Piperacillin Sod/Tazobactam 100 mls @ 200 mls/hr 05/03/20 22:00 05/03/20 23:18 Sod 4.5 gm/ Dextrose IVPB 05/04/20 15:29 200 mls/hr Q6H-IV AFUA Administration Protocol Vancomycin HCl 1,250 mg/ 250 mls @ 166.667 mls/hr 05/04/20 02:15 05/04/20 02:36 Dextrose IVPB 05/04/20 19:29 166.667 mls/hr Q8H-IV AFUA Administration Metoclopramide HCl 5 mg 05/03/20 21:34 Reglan Injection - IVPUSH Q6H PRN NAUSEA AND/OR VOMITING Vancomycin HCl 1,000 mg 05/03/20 22:00 Vancomycin (Pre-Docked) IVPB DAILY AFUA Protocol ASSESSMENT AND PLAN: 1. Neutropenic fever/Kidney stone disease - Ultrasound showed a nonobstructing kidney stone in the left renal pelvis. CT abdomen/pelvis with IV contrast didnot reveal any acute abnormality. No acute abnormality on CXR. Sepsis workup being done. Transaminitis and low platelets may be components of sepsis - will trend. Hepatitis serology pending. Concern is for Tick-borne illness, hepatitis A or parasitic infection like amoebiasis. Hypokalemia and hyponatremia likely partly due to hyperglycemia and/or vomiting. Will check serum magnesium, give IV and PO KCL, limit free water intake and correct hyperglycemia. Will send tick borne panel, send stool for ova&parasites if diarrhea reoccurs, hepatitis A serology, trend LFTs, RUQ sonogram, HIV test and place on reverse isolation. Will treat IV Vancomycin, IV Zosyn, IV Doxycycline, IV Morphine (PRN), IV NS and consult ID/Hematology/GI. Consult Urology and refer to Nephrology for stone disease risk factor evaluation. Viral testing for COVID-19 ordered and patient placed on airborne, droplet and contact isolation. 2. DVT prophylaxis - Lovenox 40 mg SQ q 24 hours. 3. Advance directives - Full code
[2020-05-03] MEDS ORDERED: METOCLOPRAMIDE HCL INJECTION 10 MG/2 ML VIAL IVPUSH PRN (21:34)
[2020-05-03] MEDS ORDERED: SODIUM CHLORIDE 1,000 ML IV SCH (21:45)
[2020-05-03 21:51] LABS: HEMATOCRIT 36.4 % (32.4-45.2); HEMOGLOBIN 12.6 GM/dL (10.7-15.3); MCH 32.4 pg (25.7-33.7); MCHC 34.7 g/dl (32.0-36.0); MEAN CELL VOLUME 93.5 fl (80-96); MEAN PLT VOLUME 9.1 fl (7.5-11.1)
[2020-05-03 21:56] LABS: PLATELET COUNT 48 K/MM3 (134-434); WHITE BLOOD COUNT 1.3 K/mm3 (4.0-10.0)
[2020-05-03] MEDS ORDERED: PIPERACILLIN/TAZOB 4.5 GM 4.5 GM in DEXTROSE 5%-WATER 100 ML IVPB SCH (22:00)
[2020-05-03] MEDS ORDERED: VANCOMYCIN 1 GM in D5W (PRE-DOCKED) 1,000 MG/250 ML IVPB SCH (22:00)
[2020-05-03] MEDS ORDERED: DEXTROSE 5%-WATER 100 ML IVPB ONE (23:10)
[2020-05-03] MEDS ORDERED: PIPERACILLIN/TAZOBACTAM 4.5 GM VIAL IVPB ONE (23:10)
[2020-05-03] MEDS: PIPERACILLIN/TAZOB 4.5 GM 4.5 GM in DEXTROSE 5%-WATER 100 ML IVPB SCH (23:18)
[2020-05-04] MEDS ORDERED: DOXYCYCLINE HYCLATE 100 MG VIAL ONE ×3 (00:23→21:20)
[2020-05-04] MEDS ORDERED: DEXTROSE 5%-WATER 100 ML IVPB ONE ×6 (00:23→21:20)
[2020-05-04] MEDS: DOXYCYCLINE INJECTION 100 MG in DEXTROSE 5%-WATER 100 ML IVPB SCH ×3 (00:30→21:38)
[2020-05-04] MEDS ORDERED: VANCOMYCIN 1 GM in D5W (PRE-DOCKED) 1,000 MG/250 ML IVPB SCH (02:15)
[2020-05-04] MEDS: VANCOMYCIN HCL 1,250 MG in DEXTROSE 5%-WATER - 250 ML IVPB SCH ×3 (02:36→17:30)
--- NOTE | 2020-05-04 03:21 | HP ---
CHIEF COMPLAINT: b/l flank pain, fever, chills for last 5 days PCP: unknown HISTORY OF PRESENT ILLNESS: Lisa Phillips is a 19 year old female with a PMX of nephrolithiasis who is presenting with b/l flank pain, fevers, and chills for the last 5 days. Patient states that she has had fever, chills, and b/l flank pain on and off for the last 5 days. States that Tylenol BID and chamomile tea makes her feel better. Patient endorses headaches, nausea, vomiting 4-5x/day, fatigue, on and off diarrhea. Of note, patient traveled to [place] from April 13- and she states that during her trip she had 5 days of diarrhea with abdominal pain and flank pain. Patient also endorses being bitten by a lot of mosquitoes during her trip. Patient has a surgical history of lithotripsy for her kidney stones and does not currently take any medications or has any known allergies. Patient denies any prior hospitalizations and denies any pertinent family history. Currently not taking any medications. Patient states that her FDLMP was 4 days ago and she is currently on her period. Denies sexual activity but patient does have a boyfriend who was present at the time of interview. ER course was notable for: (1) Potassium was repleted; 10 meq given (2) Toradol and morphine given (3) EKG done: normal sinus rhythm with prolonged QTc of 503 Recent Travel: [place] April 13 PAST MEDICAL HISTORY: nephrolithiasis PAST SURGICAL HISTORY: lithotripsy Social History: Smoking:denies Alcohol:occasional Drugs:denies Allergies No Known Drug Allergies Allergy (Verified 05/03/20 15:16) HOME MEDICATIONS: Home Medications Medication Instructions Recorded NK [No Known Home Medication] 02/17/19 REVIEW OF SYSTEMS CONSTITUTIONAL: +fever, +chills, +generalized weakness, + malaise Absent: loss of appetite, weight change HEENT: Absent: rhinorrhea, nasal congestion, throat pain, throat swelling, difficulty swallowing, mouth swelling, ear pain, eye pain, visual changes CARDIOVASCULAR: +lightheadedness Absent: chest pain, syncope, palpitations, irregular heart rate, peripheral edema RESPIRATORY: Absent: cough, shortness of breath, dyspnea with exertion, orthopnea, wheezing, stridor, hemoptysis GASTROINTESTINAL: +nausea, +vomiting, +diarrhea Absent: abdominal pain, abdominal distension, constipation, melena, hematochezia GENITOURINARY: Absent: dysuria, frequency, urgency, hesitancy, hematuria, flank pain, genital pain MUSCULOSKELETAL: +myalgia, +arthralgia, Absent: joint swelling, back pain, neck pain SKIN: Absent: rash, itching, pallor HEMATOLOGIC/IMMUNOLOGIC: Absent: easy bleeding, easy bruising, lymphadenopathy, frequent infections ENDOCRINE: Absent: unexplained weight gain, unexplained weight loss, heat intolerance, cold intolerance NEUROLOGIC: + headaches Absent: focal weakness or paresthesias, dizziness, unsteady gait, seizure, mental status changes, bladder or bowel incontinence PSYCHIATRIC: Absent: anxiety, depression, suicidal or homicidal ideation, hallucinations. PHYSICAL EXAMINATION Vital Signs - 24 hr 05/03/20 05/03/20 05/03/20 15:09 18:52 19:39 Temperature 100.8 F H 99.1 F Pulse Rate 114 H Pulse Rate [ 71 Radial] Respiratory 18 20 Rate Blood Pressure 94/55 L Blood Pressure 90/49 L [Left Arm] O2 Sat by Pulse 100 98 Oximetry (%) 05/03/20 05/04/20 21:00 01:17 Temperature 98.3 F 98.5 F Pulse Rate 57 L 58 L Pulse Rate [ Radial] Respiratory 18 18 Rate Blood Pressure 91/52 L 96/62 Blood Pressure [Left Arm] O2 Sat by Pulse 98 100 Oximetry (%) GENERAL: AAOx3, in no acute distress HEENT: NCAT, PERRLA, EOMI, sclera anicteric, conjunctiva clear, oropharynx clear w/o exudates. MMM. NECK: Normal ROM, supple, no lymphadenopathy, JVD, or masses LUNGS: CTABL no wheezes/ rhonchi/ rales. No distress, speaks in full sentences. No increased work of breathing. HEART: RRR, normal S1 S2, no M/R/G, peripheral pulses 2+ and equal b/l ABDOMEN: Soft, tenderness to deep palpation in RUQ, + BS. No guarding or rebound. + hepatomegaly. no splenomegaly. b/l flank tenderness R > L. + Willy's sign b/l MSK: ROM WNL EXTREMITIES: Normal inspection. No peripheral edema. No clubbing or cyanosis. NEUROLOGICAL: CN II-XII intact. Normal speech, normal gait, no focal sensorimotor deficits. SKIN: Warm, Dry, normal turgor, mosquito bites b/l legs Laboratory Results - last 24 hr CBC, BMP 05/04/20 07:36 05/04/20 07:36 05/03/20 05/03/20 05/03/20 15:50 15:50 15:50 WBC 1.8 L* RBC 4.41 Hgb 14.2 Hct 41.0 MCV 93.1 MCH 32.3 MCHC 34.7 RDW 12.8 Plt Count 63 L D MPV 9.6 D Absolute Neuts (auto) 0.8 L Total Counted 100 Neutrophils % 44.8 D Neutrophils % (Manual) 34.0 L Band Neutrophils % 4.0 Lymphocytes % 39.9 D Lymphocytes % (Manual) 42.0 H Monocytes % 14.5 H D Monocytes % (Manual) 10 Eosinophils % 0.1 Basophils % 0.7 Myelocytes % (Man) 2 Nucleated RBC % 0 Metamyelocytes 2 Platelet Estimate Decreased Platelet Comment No clumping noted Ovalocytes 1+ PT with INR 12.50 INR 1.06 Sodium Potassium Chloride Carbon Dioxide Anion Gap BUN Creatinine Est GFR (CKD-EPI)AfAm Est GFR (CKD-EPI)NonAf Random Glucose Lactic Acid Calcium Total Bilirubin AST ALT Alkaline Phosphatase Total Protein Albumin Lipase Beta HCG, Quant Urine Color Dk yellow Urine Appearance Clear Urine pH 7.5 D Ur Specific [place] 1.016 Urine Protein 1+ H Urine Glucose (UA) Negative Urine Ketones 1+ H Urine Blood Negative Urine Nitrite Negative Urine Bilirubin Negative Urine Urobilinogen 1.0 Ur Leukocyte Esterase Trace Urine WBC (Auto) 23 Urine RBC (Auto) 20 Urine Casts (Auto) 3 U Epithel Cells (Auto) 36 Urine Bacteria (Auto) 67 05/03/20 05/03/20 05/03/20 15:50 15:50 21:23 WBC 1.3 L* RBC 3.90 Hgb 12.6 Hct 36.4 MCV 93.5 MCH 32.4 MCHC 34.7 RDW 13.0 Plt Count 48 L D MPV 9.1 Absolute Neuts (auto) Total Counted Neutrophils % Neutrophils % (Manual) Band Neutrophils % Lymphocytes % Lymphocytes % (Manual) Monocytes % Monocytes % (Manual) Eosinophils % Basophils % Myelocytes % (Man) Nucleated RBC % Metamyelocytes Platelet Estimate Platelet Comment Ovalocytes PT with INR INR Sodium 133 L Potassium 3.3 L Chloride 100 Carbon Dioxide 24 Anion Gap 9 BUN 6.0 L Creatinine 0.8 Est GFR (CKD-EPI)AfAm 122.14 Est GFR (CKD-EPI)NonAf 105.39 Random Glucose 107 H Lactic Acid 1.6 Calcium 8.2 L Total Bilirubin 0.4 AST 445 H ALT 203 H Alkaline Phosphatase 52 Total Protein 7.6 Albumin 3.9 Lipase 199 Beta HCG, Quant < 1.0 Urine Color Urine Appearance Urine pH Ur Specific [place] Urine Protein Urine Glucose (UA) Urine Ketones Urine Blood Urine Nitrite Urine Bilirubin Urine Urobilinogen Ur Leukocyte Esterase Urine WBC (Auto) Urine RBC (Auto) Urine Casts (Auto) U Epithel Cells (Auto) Urine Bacteria (Auto) ASSESSMENT/PLAN: 19 year old female with PMX nephrolithiasis presenting with b/l flank pain, fevers, and chills for the past 5 days. Admitted for neutropenic fever. #Neutropenic Fever -HIV, LISSETT, Lyme and STD panel ordered -blood cultures ordered -stool O and P ordered -Abx: Doxycycline, Vancomycin, and Zosyn -EKG at admission showed QTc of 503 -avoid QTc prolonging agents -IV Reglan PRN for n/v -liver u/s ordered -CXR ordered -reverse isolation precautions -IV morphine PRN for pain -ID consult appreciated -GI consult appreciated -Heme consult appreciated #L Renal Stone -renal U/S: 1.3 x 0.7 cm echogenic focus in L renal pelvis. nonobstructing calculus possible -CT abdomen/pelvis w/ contrast: no acute abnormalities -urology consult appreciated -IVF: NS @ 100 mls started -24 hour urine collection ordered -PTH level ordered -nephro consult appreciated -NPO #Transaminitis -f/u Hepatitis serology -Hepatits A serology ordered -tick borne panel ordered -repeat LFTs ordered -monitor LFTs #FEN -NS @ 100 mls -monitor electrolytes -NPO #Prophylaxis -DVT: Lovenox 40 mg SQ dispo- monitor in m/s Family Medical History Family History: As Documented Visit type - Emergency Visit Emergency Visit: Yes ED Registration Date: 05/03/20 Care time: The patient presented to the Emergency Department on the above date and was hospitalized for further evaluation of their emergent condition. - New Patient This patient is new to me today: Yes Date on this admission: 05/04/20 - Critical Care Critical Care patient: No ATTENDING PHYSICIAN STATEMENT I saw and evaluated the patient. I reviewed the resident's note and discussed the case with the resident. I agree with the resident's findings and plan as documented. SUBJECTIVE: OBJECTIVE: ASSESSMENT AND PLAN:
[2020-05-04] MEDS ORDERED: PIPERACILLIN/TAZOBACTAM 4.5 GM VIAL IVPB ONE ×3 (04:38→14:41)
[2020-05-04] MEDS: PIPERACILLIN/TAZOB 4.5 GM 4.5 GM in DEXTROSE 5%-WATER 100 ML IVPB SCH ×3 (04:42→15:01)
[2020-05-04 09:14] LABS: BASO % 0.5 % (0-2.0); EOS % 1.8 % (0-4.5); HEMATOCRIT 36.1 % (32.4-45.2); HEMOGLOBIN 12.5 GM/dL (10.7-15.3); LYMPH % 32.3 % (8-40); MCH 32.3 pg (25.7-33.7); MCHC 34.7 g/dl (32.0-36.0); MEAN PLT VOLUME 10.4 fl (7.5-11.1); MONO % 9.9 % (3.8-10.2); NEUT % 55.5 % (42.8-82.8); PLATELET COUNT 50 K/MM3 (134-434); RBC 3.89 M/mm3 (3.60-5.2); RDW 12.5 % (11.6-15.6); WHITE BLOOD COUNT 2.1 K/mm3 (4.0-10.0)
[2020-05-04 09:17] LABS: INR 1.03 (0.83-1.09); PROTHROMBIN TIME (PATIENT) 12.1 SEC (9.7-13.0)
[2020-05-04 09:20] LABS: ACTIVATED PTT 33.9 SECONDS (25.2-36.5)
--- NOTE | 2020-05-04 09:23 | CON.GU ---
Consult Consult Specialty:: urology Reason for Consultation:: bilateral renal colilc with neutropenia - History of Present Illness Chief Complaint: bilateral flank pain right greater than left History of Present Illness: Patient is a 19 year old female with history of nephrolithiasis who present with bilateral flank pain with nausea/vomiting/fever and chills. Patient was seen at [facility] and had a negative CT scan there. The patient's symptoms worsened and she presented to [facility]. A renal sono showed a question of a left 1.3 cm echogenic focus suspicious for a stone. Follow-up CT scan failed to find a stone. No hydronephrosis was noted. Patient has nausea and is currently afebrile. - History Source History Provided By: Patient - Past Medical History ...LMP: 05/03/20 ...: No - Alcohol/Substance Use Hx Alcohol Use: No - Smoking History Smoking history: Never smoked Home Medications - Allergies Allergies/Adverse Reactions: Allergies Allergy/AdvReac Type Severity Reaction Status Date / Time No Known Drug Allergies Allergy Verified 05/03/20 15:16 - Home Medications Home Medications: Ambulatory Orders NK [No Known Home Medication] 02/17/19 Physical Exam- Vital Signs: Vital Signs Temperature 98.8 F 05/04/20 06:54 Pulse Rate 60 05/04/20 06:54 Respiratory Rate 18 05/04/20 06:54 Blood Pressure 100/53 L 05/04/20 06:54 O2 Sat by Pulse Oximetry (%) 98 05/04/20 06:54 Constitutional: Yes: No Distress, Calm Eyes: Yes: WNL, Conjunctiva Clear, EOM Intact HENT: Yes: WNL, Atraumatic, Normocephalic Neck: Yes: WNL, Supple, Trachea Midline Cardiovascular: Yes: Regular Rate and Rhythm Respiratory: Yes: Regular (mild bilateral CVAT) Renal/: Yes: CVA Tenderness - Left, CVA Tenderness - Right Kidneys: Yes: Flank Pain Left, FLank Pain Right Musculoskeletal: Yes: WNL Extremities: Yes: WNL Neurological: Yes: Alert, Oriented Psychiatric: Yes: Alert, Oriented Labs: CBC, BMP 05/04/20 07:36 Assessment/Plan imp history of urolithiasis with bilateral flank pain neutropenia plan no evidence of urolithiasis or hydronephrosis symptoms does not appear to be of urologic origin
[2020-05-04 09:40] LABS: ALBUMIN 3.3 g/dl (3.4-5.0); BILIRUBIN,TOTAL 0.8 mg/dL (0.2-1); BLOOD UREA NITROGEN 6.7 mg/dL (7-18); CALCIUM 7.6 mg/dL (8.5-10.1); CREATININE 0.9 mg/dL (0.55-1.3); MAGNESIUM 1.8 mg/dL (1.8-2.4); PHOSPHOROUS 2.7 mg/dL (2.5-4.9); POTASSIUM 3.1 mmol/L (3.5-5.1); TOT PROT 6.3 g/dl (6.4-8.2)
--- NOTE | 2020-05-04 10:13 | EKG ---
Test Reason : Blood Pressure : / mmHG Vent. Rate : 066 BPM Atrial Rate : 066 BPM P-R Int : 152 ms QRS Dur : 082 ms QT Int : 430 ms P-R-T Axes : 073 082 051 degrees QTc Int : 450 ms NORMAL SINUS RHYTHM NONSPECIFIC T WAVE ABNORMALITY ABNORMAL ECG WHEN COMPARED WITH ECG OF 03-MAY-2020 19:35, NONSPECIFIC T WAVE ABNORMALITY NOW EVIDENT IN INFERIOR LEADS NONSPECIFIC T WAVE ABNORMALITY HAS REPLACED INVERTED T WAVES IN ANTERIOR LEADS Confirmed by MARIA A WRIGHT MD ([id number]) on 05/04/2020 10:12:38 AM Referred By: Diana MONK Confirmed By:MARIA A WRIGHT MD
--- NOTE | 2020-05-04 10:16 | EKG ---
Test Reason : Blood Pressure : / mmHG Vent. Rate : 065 BPM Atrial Rate : 065 BPM P-R Int : 152 ms QRS Dur : 080 ms QT Int : 484 ms P-R-T Axes : 059 078 060 degrees QTc Int : 503 ms NORMAL SINUS RHYTHM RSR' OR QR PATTERN IN V1 SUGGESTS RIGHT VENTRICULAR CONDUCTION DELAY PROLONGED QT ABNORMAL ECG NO PREVIOUS ECGS AVAILABLE Confirmed by MARIA A WRIGHT MD ([id number]) on 05/04/2020 10:16:22 AM Referred By: Confirmed By:MARIA A WRIGHT MD
--- NOTE | 2020-05-04 10:20 | PN ---
Progress Note (short form) - Note Progress Note: As per further discussion per patient; patient travelled recently to [place] and before her return , was having diarrhea and had pork to eat there. also had multiple mosquito bites while in [place], continued to have fevers while back in [facility]. Vital Signs Temperature 98.8 F 05/04/20 06:54 Pulse Rate 60 05/04/20 06:54 Respiratory Rate 18 05/04/20 06:54 Blood Pressure 100/53 L 05/04/20 06:54 O2 Sat by Pulse Oximetry (%) 98 05/04/20 06:54 Initial Vital Signs Temp Pulse Resp BP 100.8 F H 114 H 18 94/55 L 05/03/20 15:09 05/03/20 15:09 05/03/20 15:09 05/03/20 15:09 GENERAL: The patient is awake, alert, and fully oriented, in no acute distress. HEAD: Normal with no signs of trauma. EYES: PERRL, extraocular movements intact, sclera anicteric, conjunctiva clear. ENT: Ears normal, oropharynx clear without exudates, moist mucous membranes. NECK: Trachea midline, full range of motion, supple. LUNGS: Breath sounds equal, clear to auscultation bilaterally, no wheezes, no crackles, no accessory muscle use. HEART: Regular rate and rhythm, S1, S2 without murmur, rub or gallop. ABDOMEN: Soft, nontender, nondistended, normoactive bowel sounds, no guarding, no rebound, no hepatosplenomegaly, no masses. EXTREMITIES: 2+ pulses, warm, well-perfused, no edema. NEUROLOGICAL: Cranial nerves II through XII grossly intact. Normal speech, gait not observed. PSYCH: Normal mood, normal affect. SKIN: Warm, dry, normal turgor, no rashes or lesions noted CBCD WBC 2.1 K/mm3 (4.0-10.0) L 05/04/20 07:36 RBC 3.89 M/mm3 (3.60-5.2) 05/04/20 07:36 Hgb 12.5 GM/dL (10.7-15.3) 05/04/20 07:36 Hct 36.1 % (32.4-45.2) 05/04/20 07:36 MCV 93.0 fl (80-96) 05/04/20 07:36 MCHC 34.7 g/dl (32.0-36.0) 05/04/20 07:36 RDW 12.5 % (11.6-15.6) 05/04/20 07:36 Plt Count 50 K/MM3 (134-434) L 05/04/20 07:36 MPV 10.4 fl (7.5-11.1) D 05/04/20 07:36 CMP Sodium 138 mmol/L (136-145) 05/04/20 07:36 Potassium 3.1 mmol/L (3.5-5.1) L 05/04/20 07:36 Chloride 105 mmol/L (98-107) 05/04/20 07:36 Carbon Dioxide 27 mmol/L (21-32) 05/04/20 07:36 Anion Gap 7 MMOL/L (8-16) L 05/04/20 07:36 BUN 6.7 mg/dL (7-18) L 05/04/20 07:36 Creatinine 0.9 mg/dL (0.55-1.3) 05/04/20 07:36 Random Glucose 93 mg/dL (74-106) 05/04/20 07:36 Calcium 7.6 mg/dL (8.5-10.1) L 05/04/20 07:36 Total Bilirubin 0.8 mg/dL (0.2-1) 05/04/20 07:36 AST 447 U/L (15-37) H 05/04/20 07:36 ALT 223 U/L (13-61) H 05/04/20 07:36 Alkaline Phosphatase 42 U/L (45-117) L 05/04/20 07:36 Total Protein 6.3 g/dl (6.4-8.2) L 05/04/20 07:36 Albumin 3.3 g/dl (3.4-5.0) L 05/04/20 07:36 Current Medications Generic Name Dose Route Start Last Admin Trade Name Freq PRN Reason Stop Dose Admin Sodium Chloride 1,000 mls @ 100 mls/hr 05/03/20 21:45 05/03/20 22:04 Normal Saline - IV 100 mls/hr ASDIR AFUA Administration Piperacillin Sod/Tazobactam 100 mls @ 200 mls/hr 05/03/20 22:00 Sod 4.5 gm/ Dextrose IVPB Q6H-IV AFUA Protocol Doxycycline Hyclate 100 mg/ 100 mls @ 100 mls/hr 05/03/20 22:00 05/04/20 09:17 Dextrose IVPB 100 mls/hr BID AFUA Administration Piperacillin Sod/Tazobactam 100 mls @ 200 mls/hr 05/03/20 22:00 05/04/20 09:16 Sod 4.5 gm/ Dextrose IVPB 05/04/20 15:29 200 mls/hr Q6H-IV AFUA Administration Protocol Vancomycin HCl 1,250 mg/ 250 mls @ 166.667 mls/hr 05/04/20 02:15 05/04/20 09:17 Dextrose IVPB 05/04/20 19:29 166.667 mls/hr Q8H-IV AFUA Administration Metoclopramide HCl 5 mg 05/03/20 21:34 Reglan Injection - IVPUSH Q6H PRN NAUSEA AND/OR VOMITING Vancomycin HCl 1,000 mg 05/03/20 22:00 Vancomycin (Pre-Docked) IVPB DAILY AFUA Protocol Home Medications Medication Instructions Recorded NK [No Known Home Medication] 02/17/19 Laboratory Tests 04/09/18 04/09/18 05/03/20 09:40 09:40 15:50 WBC 7.2 1.8 L* Hgb 12.4 14.2 Plt Count 239 63 L D Absolute Neuts (auto) 4.4 0.8 L Neutrophils % 61.1 44.8 D Lymphocytes % 32.4 39.9 D Lymphocytes % (Manual) 42.0 H Eosinophils % 0.5 0.1 Platelet Estimate Decreased Platelet Comment No clumping noted Ovalocytes 1+ Alkaline Phosphatase 66 AST 18 ALT 20 LISSETT Screen Babesia microti IgG Ab Babesia microti IgM Ab Lyme Screen IgG & IgM COVID-19 (MEDARDO) Hep A IgM Ab Confirm Hepatitis A Ab Total Hep Bs Antigen Hep B Core IgM Ab Hepatitis C Ab (EIA) HIV Ag/Ab Combo Qual 05/03/20 05/03/20 05/03/20 15:50 18:50 19:00 WBC Hgb Plt Count Absolute Neuts (auto) Neutrophils % Lymphocytes % Lymphocytes % (Manual) Eosinophils % Platelet Estimate Platelet Comment Ovalocytes Alkaline Phosphatase 52 AST 445 H ALT 203 H LISSETT Screen Babesia microti IgG Ab Babesia microti IgM Ab Lyme Screen IgG & IgM COVID-19 (MEDARDO) Pending Hep A IgM Ab Confirm Pending Hepatitis A Ab Total Hep Bs Antigen Pending Hep B Core IgM Ab Pending Hepatitis C Ab (EIA) Pending HIV Ag/Ab Combo Qual 05/03/20 05/04/20 05/04/20 21:23 07:36 07:36 WBC 1.3 L* Hgb 12.6 Plt Count 48 L D Absolute Neuts (auto) Neutrophils % Lymphocytes % Lymphocytes % (Manual) Eosinophils % Platelet Estimate Platelet Comment Ovalocytes Alkaline Phosphatase AST ALT LISSETT Screen Pending Babesia microti IgG Ab Pending Babesia microti IgM Ab Pending Lyme Screen IgG & IgM COVID-19 (MEDARDO) Hep A IgM Ab Confirm Pending Hepatitis A Ab Total Pending Hep Bs Antigen Hep B Core IgM Ab Hepatitis C Ab (EIA) HIV Ag/Ab Combo Qual 05/04/20 05/04/20 05/04/20 07:36 07:36 07:36 WBC 2.1 L Hgb 12.5 Plt Count 50 L Absolute Neuts (auto) 1.2 L Neutrophils % 55.5 D Lymphocytes % 32.3 Lymphocytes % (Manual) Eosinophils % 1.8 D Platelet Estimate Platelet Comment Ovalocytes Alkaline Phosphatase 42 L AST 447 H ALT 223 H LISSETT Screen Babesia microti IgG Ab Babesia microti IgM Ab Lyme Screen IgG & IgM COVID-19 (MEDARDO) Hep A IgM Ab Confirm Hepatitis A Ab Total Hep Bs Antigen Hep B Core IgM Ab Hepatitis C Ab (EIA) HIV Ag/Ab Combo Qual Pending 05/04/20 07:36 WBC Hgb Plt Count Absolute Neuts (auto) Neutrophils % Lymphocytes % Lymphocytes % (Manual) Eosinophils % Platelet Estimate Platelet Comment Ovalocytes Alkaline Phosphatase AST ALT LISSETT Screen Babesia microti IgG Ab Babesia microti IgM Ab Lyme Screen IgG & IgM Pending COVID-19 (MEDARDO) Hep A IgM Ab Confirm Hepatitis A Ab Total Hep Bs Antigen Hep B Core IgM Ab Hepatitis C Ab (EIA) HIV Ag/Ab Combo Qual CXR: no acute chest pathology US of the kidneys: no hydronephrosis is noted, 1.3x0.7cm echogenic focus is seen in the region of the left renal pelvis possibly representing a nonobstructing calculus. CT abdomen and pelvis: possible diffuse fatty infiltration of the liver. Us recommended 1.4cm right adnexal cyst US of abdomen: negative study ASSESSMENT AND PLAN: This patient is a 19yof with PMhx of nephrolithiasis presented with b/l flank pain, fevers, and chills for the past 5 days. Admitted for neutropenic fever. #Neutropenic Fever:with thrombocytopenia and leukopenia: ON IV abx vanco/zosyn/doxy, ID on the case HIV, LISSETT, Lyme and STD panel ordered , blood cx is pending, Ucx is pending ,stool O and P ordered, monitor wbc r/o dengue, r/o malaria r/o parasitic dz. #L Renal Stone; on renal U/S: 1.3 x 0.7 cm echogenic focus in L renal pelvis. nonobstructing calculus possible urology consult appreciated , on IVF: NS @ 100 mls x 2liter, nephro on the case as well #Acute Transaminitis : f/u Hepatitis serology, Hepatits A serology ordered, tick borne panel ordered , monitor #QTc: 450 monitor and avoid Qtc prolonging drugs , will dc reglan since can prolong Qtc DVt Px: scds, no Ac since thrombocytopenic follow the stool ova parasite. follow dengue antibodies, follow smear Visit type - Emergency Visit Emergency Visit: Yes ED Registration Date: 05/03/20 Care time: The patient presented to the Emergency Department on the above date and was hospitalized for further evaluation of their emergent condition. - New Patient This patient is new to me today: Yes Date on this admission: 05/04/20 - Critical Care Critical Care patient: No - Discharge Referral Referred to [facility] Med P.C.: No
[2020-05-04] MEDS: POTASSIUM CHLORIDE 40 MEQ in SODIUM CHLORIDE 1,000 ML IVPB SCH (12:01)
--- NOTE | 2020-05-04 13:16 | CON.NEP ---
Consult Consult Specialty:: nephrology - History of Present Illness History of Present Illness: Patient is a 19 year old female with history of nephrolithiasis who present with bilateral flank pain with nausea/vomiting/fever and chills. Patient was seen at [facility] and had a negative CT scan there. The patient's symptoms worsened and she presented to [facility]. A renal sono showed a question of a left 1.3 cm echogenic focus suspicious for a stone. Follow-up CT scan failed to find a stone. No hydronephrosis was noted. Patient has nausea and is currently afebrile. She was in [place] and was bitten by mosquitoes. Has had fevers and nausea and vomiting. She has not noticed hematuria or any sediment in her urine. Pain is in right upper and lower quadrant - Past Medical History ...LMP: 05/03/20 ...: No - Alcohol/Substance Use Hx Alcohol Use: No - Smoking History Smoking history: Never smoked Home Medications - Allergies Allergies/Adverse Reactions: Allergies Allergy/AdvReac Type Severity Reaction Status Date / Time No Known Drug Allergies Allergy Verified 05/03/20 15:16 - Home Medications Home Medications: Ambulatory Orders NK [No Known Home Medication] 02/17/19 Review of Systems - Review of Systems Constitutional: reports: Fever Eyes: reports: No Symptoms HENT: reports: No Symptoms Neck: reports: No Symptoms Cardiovascular: reports: No Symptoms Respiratory: reports: No Symptoms Gastrointestinal: reports: Abdominal Pain, Nausea Genitourinary: reports: No Symptoms Breasts: reports: No Symptoms Reported Musculoskeletal: reports: No Symptoms Integumentary: reports: No Symptoms Neurological: reports: No Symptoms Endocrine: reports: No Symptoms Hematology/Lymphatic: reports: No Symptoms Psychiatric: reports: No Symptoms Nephrology Consult - Height Height: 5 ft 5 in - Weight Weight: 126 lb 6.4 oz - BMI Body Mass Index (BMI): 21.0 - Lab Results CBC,BMP: CBC, BMP 05/04/20 07:36 05/04/20 07:36 Anion Gap: Anion Gap Anion Gap 7 MMOL/L (8-16) L 05/04/20 07:36 - Imaging Chest X-ray: Report Reviewed - Physical Examination Vital Signs: Vital Signs Temperature 98.8 F 05/04/20 06:54 Pulse Rate 60 05/04/20 06:54 Respiratory Rate 18 05/04/20 06:54 Blood Pressure 100/53 L 05/04/20 06:54 O2 Sat by Pulse Oximetry (%) 98 05/04/20 06:54 Constitutional: Yes: Well Nourished, No Distress, Calm Eyes: Yes: Conjunctiva Clear HENT: Yes: Atraumatic, Normocephalic Neck: Yes: Supple, Trachea Midline Cardiovascular: Yes: Regular Rate and Rhythm Respiratory: Yes: Regular, CTA Bilaterally Gastrointestinal: Yes: Normal Bowel Sounds, Tenderness Musculoskeletal: Yes: WNL Extremities: Yes: WNL Edema: No Peripheral Pulses WNL: Yes Integumentary: Yes: WNL Wound/Incision: Yes: Well Approximated Neurological: Yes: Alert, Oriented Psychiatric: Yes: Alert, Oriented Assessment/Plan Probable viral syndrome- zicca, dengue or chikungunya are possibilities given mosquito bites. may have mild form of dengue, especially given. She does have hematuria and proteinuria and merits a work up though I doubt cute gn since she has no renal insuff and has normal BP PLAN would hydrate viral disease work up ID eval monitor liver tests anca, boogie, c3, c4 If renal function worsening would biopsy MV
--- NOTE | 2020-05-04 16:51 | CONSULT ---
Consult Consult Specialty:: Hematology Referred by:: Medicine Reason for Consultation:: Neutropenia and thrombocytopenia. - History of Present Illness Chief Complaint: Bilateral flank pain and fevers, past week. History of Present Illness: History of renal stones, with lithotripsy in past, admitted with non-remitting flank pain and fevers. Hematology consulted for newly noted moderate neutropenia, and mild thrombocytopenia. As per patient these are entirely new issues. Was initially seen at [facility] 1 week ago for same issue - indicates that she was not told that her counts were low at that time. Denies petechiae, abnormal bruising or bleeding. No features on history suggestive of chronic immuno-compromise (frequent or unusual infections, fevers etc). No family history suggestive of a heritable hematological condition. - History Source History Provided By: Patient, Medical Record Limitations to Obtaining History: No Limitations - Past Medical History ...LMP: 05/03/20 ...: No - Alcohol/Substance Use Hx Alcohol Use: No - Smoking History Smoking history: Never smoked Home Medications - Allergies Allergies/Adverse Reactions: Allergies Allergy/AdvReac Type Severity Reaction Status Date / Time No Known Drug Allergies Allergy Verified 05/03/20 15:16 - Home Medications Home Medications: Ambulatory Orders NK [No Known Home Medication] 02/17/19 Review of Systems - Review of Systems Constitutional: reports: Chills, Fever. denies: Unintentional Wgt. Loss Eyes: reports: No Symptoms HENT: reports: No Symptoms Neck: denies: Swollen Glands Cardiovascular: denies: Chest Pain, Shortness of Breath Respiratory: denies: Cough Gastrointestinal: denies: Diarrhea Genitourinary: reports: Flank Pain Musculoskeletal: denies: Back Pain, Extremity Pain, Joint Pain Endocrine: reports: No Symptoms Hematology/Lymphatic: denies: Easily Bruised, Swollen Glands Physical Exam Vital Signs: Vital Signs Temperature 99.2 F 05/04/20 10:00 Pulse Rate 79 05/04/20 10:00 Respiratory Rate 18 05/04/20 10:00 Blood Pressure 101/60 05/04/20 10:00 O2 Sat by Pulse Oximetry (%) 98 05/04/20 10:00 Constitutional: Yes: Well Nourished, No Distress, Calm Eyes: Yes: Conjunctiva Clear HENT: Yes: Atraumatic, Normocephalic Neck: Yes: Supple, Trachea Midline. No: Lymphadenopathy, Thyromegaly Cardiovascular: Yes: Regular Rate and Rhythm, S1, S2. No: Gallop, Murmur Respiratory: Yes: Regular, CTA Bilaterally Gastrointestinal: Yes: Normal Bowel Sounds, Soft. No: Hepatomegaly, Splenomegaly Musculoskeletal: No: Joint Swelling Edema: No Peripheral Pulses WNL: Yes Integumentary: Yes: Tattoos. No: Bruising, Petechiae Neurological: Yes: Alert, Oriented, Cran Nerves II-XII Intact ...Motor Strength: WNL Psychiatric: Yes: Alert, Oriented Labs: CBC, BMP 05/04/20 07:36 05/04/20 07:36 Assessment/Plan Incidentally noted thrombocytopenia and neutropenia, acute, in context of unexplained fever, transaminitis, and bilateral flank pain. Imaging (CT abdomen non-revealing). Cultures thus far negative. On empiric broad spectrum Abics. Afebrile past 24 hours, and counts are improved this morning. Peripheral smear reviewed - neutropenia and thrombocytopenia confirmed. RBC morphology unremarkable. No inclusion bodies noted. Activated/atypical lymphocytes noted. Likely viral syndrome. No intervention for warranted from hematology point of view. Management as per ID. Will follow closely.
[2020-05-04] MEDS ORDERED: PT OWN MED DRAWER 7, Y5N ONE ×2 (17:00→21:20)
--- NOTE | 2020-05-04 23:08 | PN ---
Progress Note, Physician History of Present Illness: ID CONSULT DICTATED PROBABLE VIRAL ILLNESS ? TICK BORNE ILLNESS R/O SEPSIS SECONDARY TO SOURCE AWAIT CULTURES, SEROLOGIES CONTINUE EMPIRIC ZOSYN/ DOXYCYCLINE - Current Medication List Current Medications: Active Medications Piperacillin Sod/Tazobactam (Sod 4.5 gm/ Dextrose) 100 mls @ 200 mls/hr IVPB Q6H-IV AFUA; Protocol Doxycycline Hyclate 100 mg/ (Dextrose) 100 mls @ 100 mls/hr IVPB BID AFUA Last Admin: 05/04/20 21:38 Dose: 100 mls/hr Documented by: Potassium Chloride 40 meq/ (Sodium Chloride) 1,020 mls @ 125 mls/hr IVPB Q8H AFUA Stop: 05/05/20 02:44 Last Admin: 05/04/20 12:01 Dose: 125 mls/hr Documented by: Vancomycin HCl (Vancomycin (Pre-Docked)) 1,000 mg IVPB DAILY AFUA; Protocol - Objective Vital Signs: Vital Signs Temperature 98.6 F 05/04/20 21:44 Pulse Rate 55 L 05/04/20 21:44 Respiratory Rate 05/04/20 21:44 Blood Pressure 100/56 L 05/04/20 21:44 O2 Sat by Pulse Oximetry (%) 98 05/04/20 21:44 Labs: CBC, BMP 05/04/20 07:36 05/04/20 07:36 INR, PTT INR 1.03 (0.83-1.09) 05/04/20 07:36
[2020-05-05] MEDS ORDERED: PIPERACILLIN/TAZOBACTAM 3.375 GM VIAL IVPB ONE ×3 (00:24→16:54)
[2020-05-05] MEDS ORDERED: DEXTROSE 5%-WATER - 50 ML IVPB ONE ×2 (00:24→09:21)
[2020-05-05] MEDS ORDERED: PT OWN MED DRAWER 7, Y5N ONE (00:26)
[2020-05-05] MEDS: PIPERACILLIN/TAZOB 3.375 GM 3.375 GM in DEXTROSE 5%-WATER - 50 ML IVPB SCH ×3 (01:24→17:14)
[2020-05-05] MEDS: POTASSIUM CHLORIDE 40 MEQ in SODIUM CHLORIDE 1,000 ML IVPB SCH (02:29)
[2020-05-05] MEDS ORDERED: DIPHENHYDRAMINE HCL 25 MG/10 ML CUP PO PRN (07:59)
[2020-05-05] MEDS ORDERED: diphenhydrAMINE HCL 12.5 MG/5 ML UNIT-DOSE CUPS PO PRN (08:32)
[2020-05-05 08:48] LABS: BASO % 0.4 % (0-2.0); EOS % 2.3 % (0-4.5); HEMATOCRIT 35.5 % (32.4-45.2); HEMOGLOBIN 12.3 GM/dL (10.7-15.3); LYMPH % 33.3 % (8-40); MCH 32.4 pg (25.7-33.7); MCHC 34.6 g/dl (32.0-36.0); MEAN CELL VOLUME 93.6 fl (80-96); MEAN PLT VOLUME 10.4 fl (7.5-11.1); MONO % 17.1 % (3.8-10.2); NEUT % 46.9 % (42.8-82.8); PLATELET COUNT 52 K/MM3 (134-434); RDW 12.8 % (11.6-15.6); WHITE BLOOD COUNT 2.9 K/mm3 (4.0-10.0)
[2020-05-05 09:15] LABS: ALBUMIN 3.3 g/dl (3.4-5.0); BILIRUBIN,TOTAL 0.6 mg/dL (0.2-1); CREATININE 1.3 mg/dL (0.55-1.3); MAGNESIUM 1.9 mg/dL (1.8-2.4); PHOSPHOROUS 2.5 mg/dL (2.5-4.9); POTASSIUM 4.1 mmol/L (3.5-5.1); TOT PROT 6.2 g/dl (6.4-8.2)
[2020-05-05] MEDS ORDERED: DOXYCYCLINE HYCLATE 100 MG VIAL ONE ×2 (09:20→22:09)
[2020-05-05] MEDS ORDERED: DEXTROSE 5%-WATER 100 ML IVPB ONE ×2 (09:21→22:09)
[2020-05-05 09:48] LABS: ANISOCYTOSIS 0; MACROCYTOSIS 0; PLATELET ESTIMATE DECREASED
[2020-05-05] MEDS: DOXYCYCLINE INJECTION 100 MG in DEXTROSE 5%-WATER 100 ML IVPB SCH ×2 (10:10→22:15)
[2020-05-05 12:09] VITALS: BMI 20.9
[2020-05-05] MEDS ORDERED: MELATONIN 5 MG TABLETS PO PRN (12:16)
--- NOTE | 2020-05-05 13:01 | PN ---
Physical Exam: SUBJECTIVE: Patient seen and examined at bedside this morning, in no acute distress. Complains of pruritic hives along w/ petechia. Endorses insomnia 2/2 itching. OBJECTIVE: Vital Signs Period Temp Pulse Resp BP Sys/Priest Pulse Ox Last 24 Hr 97.9 F-98.6 F 54-74 18-20 96-116/56-75 98-99 GENERAL: The patient is awake, alert, and fully oriented, in no acute distress. HEAD: Normal with no signs of trauma. EYES: PERRL, extraocular movements intact, sclera anicteric, conjunctiva clear. No ptosis. ENT: Ears normal, nares patent, oropharynx clear without exudates, moist mucous membranes. NECK: Trachea midline, full range of motion, supple. LUNGS: Breath sounds equal, clear to auscultation bilaterally, no wheezes, no crackles, no accessory muscle use. HEART: Regular rate and rhythm, S1, S2 without murmur, rub or gallop. ABDOMEN: Soft, nontender, nondistended, normoactive bowel sounds EXTREMITIES: Petechia & Hives noted on the upper and lower extremities. 2+ p ulses, warm, well-perfused, no edema. NEUROLOGICAL: Cranial nerves II through XII grossly intact. Normal speech, gait not observed. PSYCH: Normal mood, normal affect. SKIN: Warm, dry, normal turgor. Laboratory Results - last 24 hr CBC, BMP 05/05/20 07:31 05/05/20 07:31 Active Medications Generic Name Dose Route Start Last Admin Trade Name Freq PRN Reason Stop Dose Admin Diphenhydramine HCl 25 mg 05/05/20 08:32 05/05/20 10:10 Benadryl Oral Solution - PO 25 mg Q8H PRN Administration FOR ITCHING Piperacillin Sod/Tazobactam 50 mls @ 100 mls/hr 05/05/20 02:00 05/05/20 10:10 Sod 3.375 gm/ Dextrose IVPB 100 mls/hr Q8H-IV AFUA Administration Protocol Doxycycline Hyclate 100 mg/ 100 mls @ 100 mls/hr 05/05/20 10:00 05/05/20 10:10 Dextrose IVPB 100 mls/hr BID AFUA Administration Melatonin 5 mg 05/05/20 12:16 Melatonin PO HS PRN INSOMNIA ASSESSMENT/PLAN: 19yo F w/ PMHx of nephrolithiasis s/p lithotripsy, and recent travel history to [place] from April 13-, presented to the ED w/ chronic complaints of F/C/N/V/D, beginning in [place], and continuing on and off until admission. Patient states she was eating the local food, as well as having been exposed to multiple mosquitos. Neutropenic Fever 2/2 Likely Mosquito Born Virus -Hx of Travelling to [place] w/i 1 month w/ reported Mosquito Bites -Currently Afebrile -Leukoenia & Thrombocytopenia -Ruled Out: -HIV -Pending: -Dengue -Malaria -Babesia -Rheumatologic Workup: Resolving Hepatitis A -Elevated Total Ab w/ Negative IgM -Elevated Transaminases ~400 -No acute pathology seen on CT Diarrhea -Likely 2/2 mosquito borne viral illness -Monitor I/Os -Monitory Lytes -Replete as needed -Avoid Antidiarrheal agents Hives -Possibly 2/2 viral mosquito borne illness -Possible 2/2 medication reaction -Benadryl q8PRN for itching Contrast Induced GERALD -Previous Cr .9 -Monitor for decrease in Cr w/ fluids FEN -Normal Saline -Monitor Lytes -Neutropenic Diet Visit type - Emergency Visit Emergency Visit: No - New Patient This patient is new to me today: Yes Date on this admission: 05/05/20 - Critical Care Critical Care patient: No - Discharge Referral Referred to [facility] Med P.C.: No ATTENDING PHYSICIAN STATEMENT I saw and evaluated the patient. I reviewed the resident's note and discussed the case with the resident. I agree with the resident's findings and plan as documented. SUBJECTIVE: OBJECTIVE: ASSESSMENT AND PLAN:
--- NOTE | 2020-05-05 14:02 | PN ---
Progress Note (short form) - Note Progress Note: RENAL Pt is feeling better no new complaints Last Vital Signs Temp Pulse Resp BP Pulse Ox 98.5 F 57 L 18 115/59 L 99 05/05/20 09:00 05/05/20 09:00 05/05/20 09:00 05/05/20 09:00 05/05/20 09:00 lungs clear cvs s1s2 rr abd soft, no HSM ext no edema neuro a+ox3 skin has some mosquito bite stephen CBC, BMP 05/05/20 07:31 05/05/20 07:31 Current Medications Generic Name Dose Route Start Last Admin Trade Name Freq PRN Reason Stop Dose Admin Diphenhydramine HCl 25 mg 05/05/20 08:32 05/05/20 10:10 Benadryl Oral Solution - PO 25 mg Q8H PRN Administration FOR ITCHING Piperacillin Sod/Tazobactam 50 mls @ 100 mls/hr 05/05/20 02:00 05/05/20 10:10 Sod 3.375 gm/ Dextrose IVPB 100 mls/hr Q8H-IV AFUA Administration Protocol Doxycycline Hyclate 100 mg/ 100 mls @ 100 mls/hr 05/05/20 10:00 05/05/20 10:10 Dextrose IVPB 100 mls/hr BID AFUA Administration Sodium Chloride 1,000 mls @ 75 mls/hr 05/05/20 14:00 1/2 Normal Saline IV ASDIR AFUA Melatonin 5 mg 05/05/20 12:16 Melatonin PO HS PRN INSOMNIA IMPRESSION GERALD likely from contrast possible mosquito born disease PLAN abx per id restart fluids monitor transaminases await work up MV
--- NOTE | 2020-05-05 16:57 | PN ---
Teaching Attending Note Name of Resident: Wilfrid Liang ATTENDING PHYSICIAN STATEMENT I saw and evaluated the patient. I reviewed the resident's note and discussed the case with the resident. I agree with the resident's findings and plan as documented. SUBJECTIVE: Patient developed petechiae like rash on the arms and legs, c/o having pruritis. OBJECTIVE: Vital Signs Temperature 98.8 F 05/05/20 14:39 Pulse Rate 53 L 05/05/20 14:39 Respiratory Rate 18 05/05/20 14:39 Blood Pressure 108/64 05/05/20 14:39 O2 Sat by Pulse Oximetry (%) 99 05/05/20 09:00 PE:per resident's note CBCD WBC 2.9 K/mm3 (4.0-10.0) L 05/05/20 07:31 RBC 3.80 M/mm3 (3.60-5.2) 05/05/20 07:31 Hgb 12.3 GM/dL (10.7-15.3) 05/05/20 07:31 Hct 35.5 % (32.4-45.2) 05/05/20 07:31 MCV 93.6 fl (80-96) 05/05/20 07:31 MCHC 34.6 g/dl (32.0-36.0) 05/05/20 07:31 RDW 12.8 % (11.6-15.6) 05/05/20 07:31 Plt Count 52 K/MM3 (134-434) L 05/05/20 07:31 MPV 10.4 fl (7.5-11.1) 05/05/20 07:31 CMP Sodium 143 mmol/L (136-145) 05/05/20 07:31 Potassium 4.1 mmol/L (3.5-5.1) 05/05/20 07:31 Chloride 115 mmol/L (98-107) H 05/05/20 07:31 Carbon Dioxide 21 mmol/L (21-32) 05/05/20 07:31 Anion Gap 8 MMOL/L (8-16) 05/05/20 07:31 BUN 6.0 mg/dL (7-18) L 05/05/20 07:31 Creatinine 1.3 mg/dL (0.55-1.3) 05/05/20 07:31 Random Glucose 96 mg/dL (74-106) 05/05/20 07:31 Calcium 8.0 mg/dL (8.5-10.1) L 05/05/20 07:31 Total Bilirubin 0.6 mg/dL (0.2-1) 05/05/20 07:31 AST 274 U/L (15-37) H 05/05/20 07:31 ALT 185 U/L (13-61) H 05/05/20 07:31 Alkaline Phosphatase 38 U/L (45-117) L 05/05/20 07:31 Total Protein 6.2 g/dl (6.4-8.2) L 05/05/20 07:31 Albumin 3.3 g/dl (3.4-5.0) L 05/05/20 07:31 Current Medications Generic Name Dose Route Start Last Admin Trade Name Freq PRN Reason Stop Dose Admin Diphenhydramine HCl 25 mg 05/05/20 08:32 05/05/20 10:10 Benadryl Oral Solution - PO 25 mg Q8H PRN Administration FOR ITCHING Piperacillin Sod/Tazobactam 50 mls @ 100 mls/hr 05/05/20 02:00 05/05/20 10:10 Sod 3.375 gm/ Dextrose IVPB 100 mls/hr Q8H-IV AFUA Administration Protocol Doxycycline Hyclate 100 mg/ 100 mls @ 100 mls/hr 05/05/20 10:00 05/05/20 10:10 Dextrose IVPB 100 mls/hr BID AFUA Administration Sodium Chloride 1,000 mls @ 75 mls/hr 05/05/20 14:00 1/2 Normal Saline IV ASDIR AFUA Melatonin 5 mg 05/05/20 12:16 Melatonin PO HS PRN INSOMNIA Microbiology 05/04/20 20:13 Blood - Peripheral Venous Blood Parasites Smear - Final 05/03/20 15:50 Urine - Urine Clean Catch Urine Culture - Preliminary Lactose Fermenting Neg Bacilli CXR: no acute chest pathology US of the kidneys: no hydronephrosis is noted, 1.3x0.7cm echogenic focus is seen in the region of the left renal pelvis possibly representing a nonobstructing calculus. CT abdomen and pelvis: possible diffuse fatty infiltration of the liver. Us recommended 1.4cm right adnexal cyst US of abdomen: negative study ASSESSMENT AND PLAN: This patient is a 19yof with PMhx of nephrolithiasis presented with b/l flank pain, fevers, and chills for the past 5 days. Admitted for neutropenic fever. #Neutropenic Fever:with thrombocytopenia and leukopenia: improving ON IV abx zosyn/doxy, ID on the case HIV, LISSETT, Lyme and STD panel ordered , blood cx is pending, Ucx is pending , stool O and P, monitor wbc r/o dengue, r/o malaria r/o parasitic dz. #L Renal Stone; on renal U/S: 1.3 x 0.7 cm echogenic focus in L renal pelvis. nonobstructing calculus possible urology consult appreciated , on IVF: NS @ 100 mls x 2liter, nephro on the case as well #Acute Transaminitis : f/u Hepatitis serology, Hepatits A serology ordered, tick borne panel ordered , monitor #QTc: 450 monitor and avoid Qtc prolonging drugs , will dc reglan since can prolong Qtc DVt Px: scds, no Ac since thrombocytopenic follow the stool ova parasite. follow dengue antibodies, follow smear , checkgunya abs ordered as well
[2020-05-05] MEDS: SODIUM CHLORIDE 0.45% 1,000 ML IV SCH (17:11)
--- NOTE | 2020-05-05 20:52 | PN ---
Progress Note (short form) - Note Progress Note: Patient seen in follow up. Reporting some epigastric discomfort, otherwise no new complaints. No significant events overnight. No fever spikes. Inpatient Meds reviewed. Current Medications Generic Name Dose Route Start Last Admin Trade Name Freq PRN Reason Stop Dose Admin Diphenhydramine HCl 25 mg 05/05/20 08:32 05/05/20 10:10 Benadryl Oral Solution - PO 25 mg Q8H PRN Administration FOR ITCHING Piperacillin Sod/Tazobactam 50 mls @ 100 mls/hr 05/05/20 02:00 05/05/20 17:14 Sod 3.375 gm/ Dextrose IVPB 100 mls/hr Q8H-IV AFUA Administration Protocol Doxycycline Hyclate 100 mg/ 100 mls @ 100 mls/hr 05/05/20 10:00 05/05/20 10:10 Dextrose IVPB 100 mls/hr BID AFUA Administration Sodium Chloride 1,000 mls @ 75 mls/hr 05/05/20 14:00 05/05/20 17:11 1/2 Normal Saline IV 75 mls/hr ASDIR AFUA Administration Melatonin 5 mg 05/05/20 12:16 Melatonin PO HS PRN INSOMNIA On Examination: Last Vital Signs Temp Pulse Resp BP Pulse Ox 98.8 F 53 L 18 108/64 99 05/05/20 14:39 05/05/20 14:39 05/05/20 14:39 05/05/20 14:39 05/05/20 09:00 General: In no acute distress, sitting up comfortably in bed. Extremities: No pallor or icterus. Chest: good air entry bilaterally, clear Abdomen: Non-distended. Neuro: Alert, oriented, non-focal. Labs: CBC, BMP 05/05/20 07:31 05/05/20 07:31 Assessment. Incidentally noted thrombocytopenia and neutropenia, acute, in context of unexplained fever, transaminitis, and bilateral flank pain. Imaging (CT abdomen non-revealing). Cultures thus far negative. On empiric broad spectrum Abics. Afebrile past 24 hours, and counts are improved this morning. Peripheral smear reviewed - neutropenia and thrombocytopenia confirmed. RBC morphology unremarkable. No inclusion bodies noted. Activated/atypical lymphocytes noted. Likely viral syndrome. No intervention for warranted from hematology point of view. Management as per ID. Will follow closely.
--- NOTE | 2020-05-05 23:00 | PN ---
Progress Note, Physician History of Present Illness: FEELING BETTER WANTS TO GO HOME C/O LOOSE STOOL NO F/C WBC IMPROVED LFTS IMPROVED - Current Medication List Current Medications: Active Medications Diphenhydramine HCl (Benadryl Oral Solution -) 25 mg PO Q8H PRN PRN Reason: FOR ITCHING Last Admin: 05/05/20 10:10 Dose: 25 mg Documented by: Piperacillin Sod/Tazobactam (Sod 3.375 gm/ Dextrose) 50 mls @ 100 mls/hr IVPB Q8H-IV AFUA; Protocol Last Admin: 05/05/20 17:14 Dose: 100 mls/hr Documented by: Doxycycline Hyclate 100 mg/ (Dextrose) 100 mls @ 100 mls/hr IVPB BID AFUA Last Admin: 05/05/20 22:15 Dose: 100 mls/hr Documented by: Sodium Chloride (1/2 Normal Saline) 1,000 mls @ 75 mls/hr IV ASDIR AFUA Last Admin: 05/05/20 17:11 Dose: 75 mls/hr Documented by: Melatonin (Melatonin) 5 mg PO HS PRN PRN Reason: INSOMNIA - Objective Vital Signs: Vital Signs Temperature 98.8 F 05/05/20 22:00 Pulse Rate 66 05/05/20 22:00 Respiratory Rate 18 05/05/20 22:00 Blood Pressure 119/72 05/05/20 22:00 O2 Sat by Pulse Oximetry (%) 99 05/05/20 22:00 Constitutional: Yes: No Distress Eyes: Yes: Conjunctiva Clear Cardiovascular: Yes: Regular Rate and Rhythm, S1, S2 Respiratory: Yes: CTA Bilaterally Gastrointestinal: Yes: Normal Bowel Sounds, Soft Edema: No Labs: CBC, BMP 05/05/20 07:31 05/05/20 07:31 INR, PTT INR 1.03 (0.83-1.09) 05/04/20 07:36 Assessment/Plan LEUKOPENIA IMPROVED PROBABLE VIRAL ILLNESS AWAIT SEROLOGIES CONTINUE ZOSYN/ DOXYCYCLINE
[2020-05-06] MEDS ORDERED: PIPERACILLIN/TAZOBACTAM 3.375 GM VIAL IVPB ONE ×2 (02:00→09:07)
[2020-05-06] MEDS ORDERED: DEXTROSE 5%-WATER - 50 ML IVPB ONE ×2 (02:00→09:07)
[2020-05-06] MEDS: PIPERACILLIN/TAZOB 3.375 GM 3.375 GM in DEXTROSE 5%-WATER - 50 ML IVPB SCH ×2 (02:14→09:12)
[2020-05-06] MEDS ORDERED: HYDROCORTISONE 0.5% TOPICAL CREAM 30 GM TUBE TP PRN (07:14)
[2020-05-06 09:00] LABS: BASO % 0.4 % (0-2.0); EOS % 2.2 % (0-4.5); HEMATOCRIT 33.9 % (32.4-45.2); HEMOGLOBIN 11.7 GM/dL (10.7-15.3); LYMPH % 31.4 % (8-40); MCH 31.8 pg (25.7-33.7); MCHC 34.5 g/dl (32.0-36.0); MEAN PLT VOLUME 10.2 fl (7.5-11.1); MONO % 15.6 % (3.8-10.2); NEUT % 50.4 % (42.8-82.8); PLATELET COUNT 77 K/MM3 (134-434); RBC 3.68 M/mm3 (3.60-5.2); WHITE BLOOD COUNT 3.8 K/mm3 (4.0-10.0)
[2020-05-06] MEDS: SODIUM CHLORIDE 0.45% 1,000 ML IV SCH (09:12)
[2020-05-06 09:27] LABS: ALBUMIN 3.3 g/dl (3.4-5.0); BILIRUBIN,TOTAL 0.7 mg/dL (0.2-1); BLOOD UREA NITROGEN 6.9 mg/dL (7-18); CALCIUM 8.6 mg/dL (8.5-10.1); CREATININE 1.2 mg/dL (0.55-1.3); MAGNESIUM 1.7 mg/dL (1.8-2.4); PHOSPHOROUS 3.3 mg/dL (2.5-4.9); POTASSIUM 3.7 mmol/L (3.5-5.1); TOT PROT 6.2 g/dl (6.4-8.2)
[2020-05-06 09:50] LABS: ANISOCYTOSIS 1+; MACROCYTOSIS 1+; OVALOCYTE 1+; PLATELET ESTIMATE DECREASED
[2020-05-06] MEDS ORDERED: DOXYCYCLINE HYCLATE 100 MG VIAL ONE (10:08)
[2020-05-06] MEDS ORDERED: DEXTROSE 5%-WATER 100 ML IVPB ONE (10:08)
[2020-05-06] MEDS: DOXYCYCLINE INJECTION 100 MG in DEXTROSE 5%-WATER 100 ML IVPB SCH (10:11)
[2020-05-06] MEDS ORDERED: MAGNESIUM 1GM/D5W 100ML - 100 ML IVPB IVPB ONE (11:00)
--- NOTE | 2020-05-06 14:20 | PN ---
Progress Note, Physician History of Present Illness: Pt seen and examined at bedside. She denies shortness of breath. She denies fevers or chills. - Current Medication List Current Medications: Active Medications Diphenhydramine HCl (Benadryl Oral Solution -) 25 mg PO Q8H PRN PRN Reason: FOR ITCHING Last Admin: 05/05/20 10:10 Dose: 25 mg Documented by: Hydrocortisone (Hytone 0.5% Cream -) 1 applic TP BID PRN PRN Reason: FOR ITCHING Last Admin: 05/06/20 10:14 Dose: 1 applic Documented by: Doxycycline Hyclate 100 mg/ (Dextrose) 100 mls @ 100 mls/hr IVPB BID AFUA Last Admin: 05/06/20 10:11 Dose: 100 mls/hr Documented by: Sodium Chloride (1/2 Normal Saline) 1,000 mls @ 75 mls/hr IV ASDIR AFUA Last Admin: 05/06/20 09:12 Dose: 75 mls/hr Documented by: Melatonin (Melatonin) 5 mg PO HS PRN PRN Reason: INSOMNIA - Objective Vital Signs: Vital Signs Temperature 97.8 F 05/06/20 09:52 Pulse Rate 48 L 05/06/20 09:52 Respiratory Rate 20 05/06/20 09:52 Blood Pressure 95/54 L 05/06/20 09:52 O2 Sat by Pulse Oximetry (%) 98 05/06/20 09:52 Constitutional: Yes: Calm Eyes: Yes: Conjunctiva Clear HENT: Yes: Atraumatic Neck: Yes: Supple Cardiovascular: Yes: S1, S2 Respiratory: Yes: CTA Bilaterally Gastrointestinal: Yes: Soft Genitourinary: Yes: WNL Musculoskeletal: Yes: WNL Edema: No Integumentary: Yes: Rash, Tattoos Neurological: Yes: Oriented Psychiatric: Yes: Oriented Labs: CBC, BMP 05/06/20 07:18 05/06/20 07:18 INR, PTT INR 1.03 (0.83-1.09) 05/04/20 07:36 Problem List - Problems (1) Neutropenia Code(s): D70.9 - NEUTROPENIA, UNSPECIFIED Qualifiers: Neutropenia type: due to infection Qualified Code(s): D70.3 - Neutropenia d ue to infection Assessment/Plan Current Medications Generic Name Dose Route Start Last Admin Trade Name Freq PRN Reason Stop Dose Admin Diphenhydramine HCl 25 mg 05/05/20 08:32 05/05/20 10:10 Benadryl Oral Solution - PO 25 mg Q8H PRN Administration FOR ITCHING Hydrocortisone 1 applic 05/06/20 07:14 05/06/20 10:14 Hytone 0.5% Cream - TP 1 applic BID PRN Administration FOR ITCHING Doxycycline Hyclate 100 mg/ 100 mls @ 100 mls/hr 05/05/20 10:00 05/06/20 10:11 Dextrose IVPB 100 mls/hr BID AFUA Administration Sodium Chloride 1,000 mls @ 75 mls/hr 05/05/20 14:00 05/06/20 09:12 1/2 Normal Saline IV 75 mls/hr ASDIR AFUA Administration Melatonin 5 mg 05/05/20 12:16 Melatonin PO HS PRN INSOMNIA Impression 1. GERALD (open die inspector rickey from 0.8 to 1.3) 2. nephrolithiasis 3. rash 4. neutropenia 5. rash Plan - cont to monitor renal function - cont fluids - follow serologies - check ds dna - follow wbc - repeat ua - open die inspector improving
--- NOTE | 2020-05-06 14:29 | PN ---
Teaching Attending Note Name of Resident: Gucci Taylor ATTENDING PHYSICIAN STATEMENT I saw and evaluated the patient. I reviewed the resident's note and discussed the case with the resident. I agree with the resident's findings and plan as documented. SUBJECTIVE: Patient is feeling better with NAD OBJECTIVE: Vital Signs Temperature 97.8 F 05/06/20 09:52 Pulse Rate 48 L 05/06/20 09:52 Respiratory Rate 20 05/06/20 09:52 Blood Pressure 95/54 L 05/06/20 09:52 O2 Sat by Pulse Oximetry (%) 98 05/06/20 09:52 pe: + maculopapular rash + petechae CBCD WBC 3.8 K/mm3 (4.0-10.0) L 05/06/20 07:18 RBC 3.68 M/mm3 (3.60-5.2) 05/06/20 07:18 Hgb 11.7 GM/dL (10.7-15.3) 05/06/20 07:18 Hct 33.9 % (32.4-45.2) 05/06/20 07:18 MCV 92.0 fl (80-96) 05/06/20 07:18 MCHC 34.5 g/dl (32.0-36.0) 05/06/20 07:18 RDW 13.0 % (11.6-15.6) 05/06/20 07:18 Plt Count 77 K/MM3 (134-434) L D 05/06/20 07:18 MPV 10.2 fl (7.5-11.1) 05/06/20 07:18 CMP Sodium 142 mmol/L (136-145) 05/06/20 07:18 Potassium 3.7 mmol/L (3.5-5.1) 05/06/20 07:18 Chloride 112 mmol/L (98-107) H 05/06/20 07:18 Carbon Dioxide 24 mmol/L (21-32) 05/06/20 07:18 Anion Gap 7 MMOL/L (8-16) L 05/06/20 07:18 BUN 6.9 mg/dL (7-18) L 05/06/20 07:18 Creatinine 1.2 mg/dL (0.55-1.3) 05/06/20 07:18 Random Glucose 85 mg/dL (74-106) 05/06/20 07:18 Calcium 8.6 mg/dL (8.5-10.1) 05/06/20 07:18 Total Bilirubin 0.7 mg/dL (0.2-1) 05/06/20 07:18 AST 267 U/L (15-37) H 05/06/20 07:18 ALT 191 U/L (13-61) H 05/06/20 07:18 Alkaline Phosphatase 41 U/L (45-117) L 05/06/20 07:18 Total Protein 6.2 g/dl (6.4-8.2) L 05/06/20 07:18 Albumin 3.3 g/dl (3.4-5.0) L 05/06/20 07:18 Home Medications Medication Instructions Recorded Doxycycline Hyclate 100 mg PO BID 10 Days #20 capsule 05/06/20 Nitrofurantoin Macrocrystal 100 mg PO BID 7 Days #14 capsule 05/06/20 [Nitrofurantoin] Current Medications Generic Name Dose Route Start Last Admin Trade Name Freq PRN Reason Stop Dose Admin Diphenhydramine HCl 25 mg 05/05/20 08:32 05/05/20 10:10 Benadryl Oral Solution - PO 25 mg Q8H PRN Administration FOR ITCHING Hydrocortisone 1 applic 05/06/20 07:14 05/06/20 10:14 Hytone 0.5% Cream - TP 1 applic BID PRN Administration FOR ITCHING Doxycycline Hyclate 100 mg/ 100 mls @ 100 mls/hr 05/05/20 10:00 05/06/20 10:11 Dextrose IVPB 100 mls/hr BID AFUA Administration Sodium Chloride 1,000 mls @ 75 mls/hr 05/05/20 14:00 05/06/20 09:12 1/2 Normal Saline IV 75 mls/hr ASDIR AFUA Administration Melatonin 5 mg 05/05/20 12:16 Melatonin PO HS PRN INSOMNIA Microbiology 05/03/20 15:50 Urine - Urine Clean Catch Urine Culture - Final Escherichia Coli 05/04/20 20:13 Blood - Peripheral Venous Blood Parasites Smear - Final CXR: no acute chest pathology US of the kidneys: no hydronephrosis is noted, 1.3x0.7cm echogenic focus is seen in the region of the left renal pelvis possibly representing a nonobstructing calculus. CT abdomen and pelvis: possible diffuse fatty infiltration of the liver. Us recommended 1.4cm right adnexal cyst US of abdomen: negative study ASSESSMENT AND PLAN: This patient is a 19yof with PMhx of nephrolithiasis presented with b/l flank pain, fevers, and chills for the past 5 days. Admitted for neutropenic fever. #Neutropenic Fever: improved , improved thrombocytopenia and leukopenia: s/p IV abx zosyn, asper ID , Dr Mao , patient can be discharged home on doxy, further w/u is pending, patient will be followed up with Dr Mao , ordered babesisis pcr and anaplasmasosis pcr , LISSETT, Lyme and STD panel ordered , Ucx is E.coli sensitive to nitrofurantoin as per ID to give the patient nitrofurantoin and dc the patient on doxy for 10 more days and 7 days nitrofurantoin. stool O and P negative, r/o dengue, r/o checkengunya #L Renal Stone; on renal U/S: 1.3 x 0.7 cm echogenic focus in L renal pelvis. nonobstructing calculus possible , follow with urology as an outpatient #Acute Transaminitis : f/u Hepatitis serology, Hepatits A serology ordered, tick borne panel ordered ,follow up with ID for further result since pending #QTc: 450 monitor and avoid Qtc prolonging drugs , will dc reglan since can prolong Qtc DVt Px: scds, no Ac since thrombocytopenic follow dengue antibodies, follow smear , checkgunya abs anaplasmosis, babesiosis
--- NOTE | 2020-05-06 14:42 | PN ---
Progress Note, Physician History of Present Illness: FEELING BETTER WANTS TO GO HOME NO C/O DIARRHEA TODAY AFEBRILE WBC IMPROVED - Current Medication List Current Medications: Active Medications Diphenhydramine HCl (Benadryl Oral Solution -) 25 mg PO Q8H PRN PRN Reason: FOR ITCHING Last Admin: 05/05/20 10:10 Dose: 25 mg Documented by: Hydrocortisone (Hytone 0.5% Cream -) 1 applic TP BID PRN PRN Reason: FOR ITCHING Last Admin: 05/06/20 10:14 Dose: 1 applic Documented by: Doxycycline Hyclate 100 mg/ (Dextrose) 100 mls @ 100 mls/hr IVPB BID AFUA Last Admin: 05/06/20 10:11 Dose: 100 mls/hr Documented by: Sodium Chloride (1/2 Normal Saline) 1,000 mls @ 75 mls/hr IV ASDIR [facility] Last Admin: 05/06/20 09:12 Dose: 75 mls/hr Documented by: Melatonin (Melatonin) 5 mg PO HS PRN PRN Reason: INSOMNIA - Objective Vital Signs: Vital Signs Temperature 97.8 F 05/06/20 09:52 Pulse Rate 48 L 05/06/20 09:52 Respiratory Rate 05/06/20 09:52 Blood Pressure 95/54 L 05/06/20 09:52 O2 Sat by Pulse Oximetry (%) 98 05/06/20 09:52 Constitutional: Yes: No Distress Eyes: Yes: Conjunctiva Clear Cardiovascular: Yes: Regular Rate and Rhythm, S1, S2 Respiratory: Yes: CTA Bilaterally Gastrointestinal: Yes: Normal Bowel Sounds, Soft Edema: No Labs: CBC, BMP 05/06/20 07:18 05/06/20 07:18 INR, PTT INR 1.03 (0.83-1.09) 05/04/20 07:36 Assessment/Plan LEUKOPENIA IMPROVED PROBABLE VIRAL ILLNESS AWAIT SEROLOGIES SUBSTITUTE PO DOXYCYCLINE 100MG PO BID 14D WILL F/U IN OFFICE 05/08/20
--- NOTE | 2020-05-06 14:47 | DS ---
Physical Exam: SUBJECTIVE: Patient seen and examined at bedside. No acute events reported overnight. Today, the patient has no concerns or complaints. Reports feeling better today. OBJECTIVE: Vital Signs Period Temp Pulse Resp BP Sys/Priest Pulse Ox Last 24 Hr 97.8 F-98.8 F 48-66 18-20 95-119/54-72 97-99 PHYSICAL EXAM GENERAL: AAOx3, in no acute distress HEENT: NCAT, PERRLA, EOMI, sclera anicteric, conjunctiva clear, oropharynx clear w/o exudates. MMM. NECK: Normal ROM, supple, no lymphadenopathy, JVD, or masses LUNGS: CTABL no wheezes/ rhonchi/ rales. No distress, speaks in full sentences. No increased work of breathing. HEART: RRR, normal S1 S2, no M/R/G, peripheral pulses 2+ and equal b/l ABDOMEN: Soft, tenderness to deep palpation in RUQ, + BS. No guarding or rebound. + hepatomegaly. no splenomegaly. b/l flank tenderness R > L. + Willy's sign b/l MSK: ROM WNL EXTREMITIES: Normal inspection. No peripheral edema. No clubbing or cyanosis. NEUROLOGICAL: CN II-XII intact. Normal speech, normal gait, no focal sensorimotor deficits. SKIN: Warm, Dry, normal turgor, no rashes or lesions noted LABS Laboratory Results - last 24 hr CBC, [facility] 05/06/20 07:18 05/06/20 07:18 05/06/20 05/06/20 07:18 07:18 WBC 3.8 L RBC 3.68 Hgb 11.7 Hct 33.9 MCV 92.0 MCH 31.8 MCHC 34.5 RDW 13.0 Plt Count 77 L D MPV 10.2 Absolute Neuts (auto) 1.9 Neutrophils % 50.4 Neutrophils % (Manual) 58.6 Band Neutrophils % 0.0 Lymphocytes % 31.4 Lymphocytes % (Manual) 23.2 Monocytes % 15.6 H Monocytes % (Manual) 11 H Eosinophils % 2.2 Eosinophils % (Manual) 1.0 Basophils % 0.4 Basophils % (Manual) 0.0 Myelocytes % (Man) 1 D Promyelocytes % (Man) 0 Blast Cells % (Manual) 0 Nucleated RBC % 0 Metamyelocytes 0 Hypochromia 0 Platelet Estimate Decreased Polychromasia 0 Poikilocytosis 1+ Anisocytosis 1+ Microcytosis 1+ Macrocytosis 1+ Ovalocytes 1+ Sodium 142 Potassium 3.7 Chloride 112 H Carbon Dioxide 24 Anion Gap 7 L BUN 6.9 L Creatinine 1.2 Est GFR (CKD-EPI)AfAm 74.81 Est GFR (CKD-EPI)NonAf 64.55 Random Glucose 85 Calcium 8.6 Phosphorus 3.3 Magnesium 1.7 L Total Bilirubin 0.7 AST 267 H ALT 191 H Alkaline Phosphatase 41 L Total Protein 6.2 L Albumin 3.3 L HOSPITAL COURSE: Lisa Phillips is a 19 year old female with a PMX of nephrolithiasis who is presenting with b/l flank pain, fevers, and chills for the last week. Patient states that she has had fever, chills, and b/l flank pain on and off for the last week. States Patient endorses headaches, nausea, vomiting 4-5x/day, fatigue, on and off diarrhea. Of note, patient traveled to [place] from April 13- and she states that during her trip she had 5 days of diarrhea with abdominal pain and flank pain. Patient also endorses being bitten by a lot of mosquitoes during her trip. Patient was noted to have a neutropenic fever that improved during the course of her hospital stay. Labs were drawn for parasites and tick borne illnesses which were still pending at the time of discharge. Patient tested negative for HIV but had elevated total Hepatitis A ab with negative IgM. Patient also had elevated transaminases with no acute pathology seen on CT. Patient also had diarrhea which was likely due to mosquito borne viral illness in nature. Patient's clinical presentation was highly suspicious of Dengue fever. Patient also had a maculopapular rash that was treated with benadryl and normal saline. On day 3 of the patient's hospital course, patient felt better and preferred to be managed out patient with ID. Dr. Mao was amenable with the patient being followed up outpatient. Patient was discharged on 100 mg Doxycycline BID for 10 days and Macrobid 100 mg BID for 7 days. Patient was n Lovenox 40 mg SQ as DVT prophylaxis during her hospital stay. Date of Admission:05/03/20 05/03/2020-renal u/s- No hydronephrosis is noted. 05/03/2020-abdomen/pelvis CT-No definite CT findings acute pathology are identified 05/03/2020-chest x-ray-No acute chest pathology. 05/04/2020-ultrasound limited-Negative study Date of Discharge: 05/06/20 Minutes to complete discharge: 36 Discharge Summary Problems reviewed: Yes Reason For Visit: NEUTROPENIA Current Active Problems Neutropenia (Acute) Condition: Stable - Instructions Diet, Activity, Other Instructions: Your visit: You were admitted to the hospital for fever, chills, and low back pain. You were found to have a fever with low white blood cell count. You were treated with antibiotics with improvement of your symptoms. Medications : microfurantoin 100mg orally 2x per day x 7 days Doxycyline 100mg orally 2x per day for 10 days PLEASE DO NOT TAKE THESE MEDICATIONS TOGETHER 2-3 HOURS APART FROM EACH OTHER. PLEASE DRINK AT LEAST 2 LITERS OF FLUID PER DAY TO PREVENT FURTHER KIDNEY STONES Follow up: - Please follow-up with DR Mao the infectious disease doctor this Wednesday the 10/15/2019 for follow up visit , repeat labs complete blood work and comprehensive liver function test . and dr MAO will go over your results. Please be careful not to be bitten up again BY MOSQUITOS . Most likely you have a Dengue but still waiting for results. if you get reinfection from mosquito bites BY dengue , you can develop severe reaction even . BE CAREFUL PLEASE. DO NOT TRAVEL OUTSIDE THE COUNTRY AGAIN. Visit with your Primary Care Provider, Dr. Iniguez, in 2 weeks, or you can follow up in the clinic within one with Dr Berkowitz Additional Instructions: -You are being discharged to your home. PLEASE FOLLOW UP WITH DR MAO IN 2 DAYS. IT IS VERY IMPORTANT. -Please return to the Emergency Department if you experience worsening pain, fevers, chills, shortness of breath, or chest pain, or if you experience any worsening, new or concerning symptoms. Referrals: Matthew Berkowitz MD [Staff Physician] - 1 Week David Mao MD [Staff Physician] - 05/08/20 (please follow up with DR Mao within 2 days , to check your labs and results. ) Michael Dueñas MD [Staff Physician] - 2 Weeks Bela Iniguez [Primary Care Provider] - 1 Week Disposition: HOME - Home Medications Comprehensive Discharge Medication List: Ambulatory Orders Doxycycline Hyclate 100 mg PO BID 10 Days #20 capsule 05/06/20 Nitrofurantoin Macrocrystal [Nitrofurantoin] 100 mg PO BID 7 Days #14 capsule 05/06/20 This patient is new to me today: No Emergency Visit: No Critical Care patient: No - Discharge Referral Referred to [facility] Med [facility].C[facility] No ATTENDING PHYSICIAN STATEMENT I saw and evaluated the patient. I reviewed the resident's note and discussed the case with the resident. I agree with the resident's findings and plan as documented. SUBJECTIVE: OBJECTIVE: ASSESSMENT AND PLAN:
[2020-05-06 15:04] VITALS: BP 114/64; PULSE 51; TEMP 97.7
[2020-05-06 16:08] LABS: PARV B19 IGG 0.2 index (0.0-0.8); PARV B19 IGM 0.2 index (0.0-0.8)
[2020-05-06 18:06] LABS: BABESIA MICROTI ANTIBODY IGG <1:10 (Neg:<1:10); BABESIA MICROTI ANTIBODY IGM <1:10 (Neg:<1:10)
[2020-05-07 16:08] LABS: ATYPICAL pANCA <1:20 titer (Neg:<1:20); C-ANCA <1:20 titer (Neg:<1:20)
[2020-05-08 14:07] LABS: E.chaff HME IgG Negative (Neg:<1:64)
--- NOTE | 2020-05-08 17:26 | CONS ---
DATE OF CONSULTATION: 05/04/2020 INFECTIOUS DISEASE CONSULTATION HISTORY OF PRESENT ILLNESS: The patient is a 18-year-old previously healthy female who was evaluated for probable viral illness. She has a history of nephrolithiasis. She had traveled to [place] to visit family members between April 12 and April 23. While she was there, she had an episode of self-limited diarrhea which was not associated with crampy abdominal pain or blood. She had no associated fever or chills. Patient states she had many mosquito bites, especially on her lower extremities bilaterally. She did not feel ill during this time nor did any fellow travelers or co-inhabitants feel ill. She returned to the [facility] on April 23. She had been feeling well, however had developed onset of right-sided renal colic. She has a history of kidney stones in the past and had attributed this to recurrent episode of renal colic. She presented to [facility] where she states an imaging study was performed. She was discharged home. She subsequently developed fever and chills and presented to [facility] where she was evaluated. At [facility], she complained of flank pain. She was noted to have a low-grade fever. Blood work showed leukopenia with a thrombocytopenia as well as elevated liver enzymes. Cultures were obtained. She was empirically treated with Zosyn for possible urinary tract infection/urosepsis as well as doxycycline for possible tick-related illness. She states that since her return, she had not had any tick bites, did not notice any rash. 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 She denies any toxic habits. Denies any risk factors for HIV. Does not spend a significant amount of time outdoors. PAST MEDICAL HISTORY: As above. No known allergies. LABORATORY DATA: White count 1.8 with 34 neutrophils, 4 bands, 14 monocytes, 42 lymphocytes, hemoglobin 41.0, platelet count 208. Coagulation studies: INR 1.0. Chemistries: BUN 6, creatinine 0.8, total bilirubin 0.4, alkaline phosphatase 54, AST 445, ALT 203. HIV test and COVID-19 were performed and were negative. PHYSICAL EXAMINATION: General: On exam, she is awake and alert, in no acute distress. Vital signs: T-max 100.8, blood pressure 94/55, pulse 114 regular, respirations 18 per minute. HEENT: Sclerae anicteric. Oropharynx negative. Neck: Supple. No palpable nodes. Cardiovascular: Heart sounds S1, S2. Lungs: Clear. Abdomen: Soft, no suprapubic or flank tenderness. Extremities: Negative for edema. There does appear to be petechial-like exam present on the hands, forearms, and distal lower extremities bilaterally. IMPRESSION: 1. Probable viral illness. 2. Rule out tick-related illness. 3. Rule out sepsis secondary to genitourinary source. Await cultures and serologies. I suspect patient has a viral related illness secondary to her recent travel to [place] such as Zika or dengue. Thrombocytopenia and leukopenia likely secondary to viral infection. Will obtain serologies for tick-borne illnesses and continue empiric doxycycline. Also await culture results and continue Zosyn for possible bacterial infection pending workup. Thank you for the kind referral. MARIA A BURNS M.D. [id number]
== END 2020-05-06 17:27 | disposition home or self-care (01) | DRG 660 ==
LOC: JER 15:05 → JERFT 15:05 → JERBED 19:14 → J6S 20:40
PROVIDERS: ADMIT Internal Medicine; ATTEND Internal Medicine
DX: D70.3 Neutropenia due to infection (principal); B34.9 Viral infection, unspecified; N17.9 Acute kidney failure, unspecified; D69.6 Thrombocytopenia, unspecified; A90 Dengue fever [classical dengue]; E87.1 Hypo-osmolality and hyponatremia; R50.81 Fever presenting with conditions classified elsewhere; N20.0 Calculus of kidney; R74.0 Nonspecific elevation of levels of transaminase and lactic acid dehydrogenase [LDH]; R19.7 Diarrhea, unspecified; L50.9 Urticaria, unspecified; N14.1 Nephropathy induced by other drugs, medicaments and biological substances; T50.8X5A Adverse effect of diagnostic agents, initial encounter
CPT/HCPCS: 36415; 71046-TC-FY; 74177-TC; 76705-TC; 76775-TC; 80053; 80074; 81003; 82930; 83520; 83605; 83690; 83735; 83970; 84100; 84702; 85025; 85027; 85610; 85730; 86038; 86225; 86256; 86618; 86666; 86707; 86708; 86747; 86753; 86790; 86850; 86900; 86901; 87086; 87186; 87207; 87389; 87798; 93005; 93010; 99285-25; Q9967; U0003

== ENCOUNTER 2021-06-14 11:18 | Emergency (ER) | payer OTHER ==
[2021-06-14 11:33] VITALS: BP 105/66; PULSE 96; TEMP 98.8; BMI 20.7
[2021-06-14 12:45] LABS: BASO % 0.6 % (0-2.0); EOS % 0.2 % (0-4.5); HEMATOCRIT 34.7 % (32.4-45.2); LYMPH % 11.7 % (8-40); MCH 32.3 pg (25.7-33.7); MCHC 34.5 g/dl (32.0-36.0); MEAN CELL VOLUME 93.5 fl (80-96); MEAN PLT VOLUME 9.4 fl (7.5-11.1); MONO % 11.3 % (3.8-10.2); NEUT % 76.2 % (42.8-82.8); PLATELET COUNT 179 10^3/uL (134-434); RBC 3.71 M/mm3 (3.60-5.2); RDW 13.4 % (11.6-15.6); WHITE BLOOD COUNT 9.8 K/mm3 (4.0-10.0)
[2021-06-14 13:06] LABS: CALCIUM 8.5 mg/dL (8.5-10.1); HCG,QUALITATIVE URINE Negative
[2021-06-14 13:07] LABS: ALBUMIN 3.5 g/dl (3.4-5.0)
[2021-06-14 13:10] LABS: CREATININE 0.6 mg/dL (0.55-1.3)
[2021-06-14 13:11] LABS: BILIRUBIN,TOTAL 0.5 mg/dL (0.2-1); TOT PROT 7.5 g/dl (6.4-8.2)
[2021-06-14 13:16] LABS: EPI CELLS 7 /uL (0-25.1); HYALINE CASTS 8 /uL (0-3.1); URINE APPEARANCE CLEAR; URINE BACTERIA 405 /uL (0-1359); URINE BILIRUBIN NEGATIVE (NEGATIVE); URINE COLOR DK YELLOW; URINE GLUCOSE (UA) NEGATIVE (NEGATIVE); URINE KETONE 3+ (NEGATIVE); URINE LEUK ESTERASE 2+ (NEGATIVE); URINE NITRITE NEGATIVE (NEGATIVE); URINE PROTEIN 1+ (NEGATIVE); URINE RBC 70 /uL (0-23.9); URINE WBC 183 /uL (0-25.8)
[2021-06-14] MEDS ORDERED: KETOROLAC TROMETHAMINE 15 MG/ML VIAL IVPUSH ONE (13:31)
[2021-06-14] MEDS ORDERED: KETOROLAC TROMETHAMINE 15 MG/ML VIAL ONE (13:33)
== END 2021-06-14 13:47 | disposition home or self-care (01) ==
LOC: JER 11:18
PROC: 3E0333Z Introduction of Anti-inflammatory into Peripheral Vein, Percutaneous Approach (ICD-10-PCS; principal; 2021-06-14)
DX: N30.90 Cystitis, unspecified without hematuria (principal); R10.9 Unspecified abdominal pain
CPT/HCPCS: 36415; 76775-TC; 80053; 81003; 84703; 85025; 87086; 87186; 99284-25

== ENCOUNTER 2022-05-07 11:19 | Emergency (ER) | payer OTHER ==
[2022-05-07 11:37] VITALS: TEMP 97.9; BMI 21.6
[2022-05-07] MEDS ORDERED: SODIUM CHLORIDE 1,000 ML IV STA (12:28)
[2022-05-07] MEDS ORDERED: ONDANSETRON 4 MG/2 ML VIAL IVPUSH ONE (12:28)
[2022-05-07] MEDS ORDERED: ACETAMINOPHEN 1000 MG/100 ML BAG IVPB ONE (12:28)
[2022-05-07] MEDS ORDERED: ONDANSETRON 4 MG/2 ML VIAL ONE (12:37)
[2022-05-07] MEDS ORDERED: ACETAMINOPHEN INJECTION 100 ML IVPB ONE (12:37)
[2022-05-07 13:25] LABS: BASO % 0.3 % (0-2.0); EOS % 0.1 % (0-4.5); HEMATOCRIT 35.9 % (32.4-45.2); LYMPH % 10.7 % (8-40); MCH 31.1 pg (25.7-33.7); MCHC 33.4 g/dl (32.0-36.0); MEAN CELL VOLUME 92.9 fl (80-96); MEAN PLT VOLUME 9.1 fl (7.5-11.1); MONO % 10.3 % (3.8-10.2); NEUT % 78.6 % (42.8-82.8); PLATELET COUNT 272 10^3/uL (134-434); RBC 3.86 M/mm3 (3.60-5.2); RDW 14.6 % (11.6-15.6); WHITE BLOOD COUNT 11.1 K/mm3 (4.0-10.0)
[2022-05-07 13:25] LABS: EPI CELLS 31 /uL (0-25.1); HYALINE CASTS 5 /uL (0-3.1); URINE APPEARANCE CLEAR; URINE BACTERIA 52 /uL (0-1359); URINE BILIRUBIN NEGATIVE (NEGATIVE); URINE COLOR DK YELLOW; URINE GLUCOSE (UA) NEGATIVE (NEGATIVE); URINE KETONE 4+ (NEGATIVE); URINE LEUK ESTERASE 1+ (NEGATIVE); URINE NITRITE NEGATIVE (NEGATIVE); URINE PROTEIN 1+ (NEGATIVE); URINE RBC 521 /uL (0-23.9); URINE UROBILINOGEN 0.2 mg/dL (0.2-1.0); URINE WBC 104 /uL (0-25.8)
[2022-05-07 13:26] LABS: HCG,QUALITATIVE URINE Negative
[2022-05-07 13:48] LABS: ALBUMIN 3.7 g/dl (3.4-5.0); BLOOD UREA NITROGEN 9.5 mg/dL (7-18)
[2022-05-07 13:51] LABS: CREATININE 0.8 mg/dL (0.55-1.3)
[2022-05-07 13:52] LABS: BILIRUBIN,TOTAL 1.1 mg/dL (0.2-1); TOT PROT 7.8 g/dl (6.4-8.2)
[2022-05-07 16:23] VITALS: BP 110/78; PULSE 76; RESP 19
== END 2022-05-07 16:23 | disposition home or self-care (01) ==
LOC: JER 11:19
PROC: 3E033NZ Introduction of Analgesics, Hypnotics, Sedatives into Peripheral Vein, Percutaneous Approach (ICD-10-PCS; principal; 2022-05-07)
PROC: 3E033GC Introduction of Other Therapeutic Substance into Peripheral Vein, Percutaneous Approach (ICD-10-PCS; 2022-05-07)
PROC: 3E0337Z Introduction of Electrolytic and Water Balance Substance into Peripheral Vein, Percutaneous Approach (ICD-10-PCS; 2022-05-07)
DX: N20.0 Calculus of kidney (principal); N12 Tubulo-interstitial nephritis, not specified as acute or chronic
CPT/HCPCS: 36415; 74176-TC; 80053; 81003; 84703; 85025; 87086; 99285-25

== ENCOUNTER 2024-01-12 17:56 | Emergency (ER) | payer OTHER ==
[2024-01-12 18:09] VITALS: BP 112/71; PULSE 83; RESP 18; TEMP 98; BMI 22.9
[2024-01-12] MEDS ORDERED: KETOROLAC TROMETHAMINE 30 MG/1 ML VIAL ONE (19:20)
[2024-01-12] MEDS: KETOROLAC TROMETHAMINE 30 MG/1 ML VIAL IM ONE (19:23)
[2024-01-12] MEDS ORDERED: LIDOCAINE HCL 1%, 10 MG/ML (20ML VIAL) ONE (19:52)
[2024-01-12] MEDS ORDERED: ONDANSETRON 4 MG/2 ML VIAL ONE (19:58)
[2024-01-12] MEDS ORDERED: morphine SULFATE 4 MG/ML VIAL ONE (19:58)
[2024-01-12] MEDS: morphine CARPU-JECT 4 MG/1 ML DISP.SYRIN IVPUSH ONE (20:04)
[2024-01-12] MEDS: ONDANSETRON 4 MG/2 ML VIAL IVPUSH ONE (20:04)
[2024-01-12] MEDS: LIDOCAINE HCL 1%, 10 MG/ML (50 mL VIAL) SQ ONE (20:05)
== END 2024-01-12 21:30 | disposition home or self-care (01) ==
LOC: JER 17:56 → JERFT 17:56
PROC: 3E0303Z Introduction of Anti-inflammatory into Peripheral Vein, Open Approach (ICD-10-PCS; principal; 2024-01-12)
PROC: 3E030GC Introduction of Other Therapeutic Substance into Peripheral Vein, Open Approach (ICD-10-PCS; 2024-01-12)
PROC: 3E023GC Introduction of Other Therapeutic Substance into Muscle, Percutaneous Approach (ICD-10-PCS; 2024-01-12)
DX: S52.502A Unspecified fracture of the lower end of left radius, initial encounter for closed fracture (principal); S52.612A Displaced fracture of left ulna styloid process, initial encounter for closed fracture; W19.XXXA Unspecified fall, initial encounter; Y93.66 Activity, soccer
CPT/HCPCS: 73110-TC-LT-FY; 99284-25